=== PATIENT | male | born 1965 | race Caucasian/White ===

== ENCOUNTER 2017-11-30 19:59 | Inpatient (IN) | payer BC ==
[2017-11-30 20:05] VITALS: BMI 50.8
[2017-11-30 22:29] LABS: BASO # 0.01 K/mm3 (0.0-2.0); BASO % 0.1 % (0.0-3.0); EOS # 0.2 (0.0-0.7); EOS % 1.9 % (1.5-5.0); GRAN # 8.14 (1.4-6.5); GRAN % 72.7 % (50.0-68.0); HEMOGLOBIN 11.8 g/dL (14.0-18.0); LYMPH # 2.2 (1.2-3.4); LYMPH % 19.7 % (22.0-35.0); MEAN CELL VOLUME 88.5 fl (80.0-105.0); MEAN CORPUSCULAR HEMOGLOBIN 30.1 pg (25.0-35.0); MEAN PLATELET VOLUME 10.8 fl (7.0-11.0); MONO # 0.6 (0.1-0.6); MONO % 5.6 % (1.0-6.0); RBC 3.92 10^6/uL (3.5-6.1); RED CELL DISTRIBUTION WIDTH 13.6 % (11.5-14.5); WHITE BLOOD COUNT 11.2 10^3/ul (4.5-11.0)
[2017-11-30 22:33] LABS: URINE BILIRUBIN NEGATIVE (NEGATIVE); URINE BLOOD MODERATE (NEGATIVE); URINE GLUCOSE (UA) 100 mg/dL (NEGATIVE); URINE LEUKOCYTE ESTERASE NEGATIVE Leu/uL (NEGATIVE); URINE PROTEIN 100 mg/dL (<30 mg/dL); URINE UROBILINOGEN 0.2 E.U./dL (<1 E.U./dL)
[2017-11-30 22:41] LABS: ALB/GLOB RATIO 1.2 (1.1-1.8); ALBUMIN 3.4 g/dL (3.0-4.8); CALCIUM 8.3 mg/dL (8.4-10.5)
[2017-11-30 22:41] LABS: URINE APPEARANCE SL CLOUDY (CLEAR); URINE COLOR YELLOW (YELLOW)
[2017-11-30 22:45] LABS: URINE WBC 0 - 2 /hpf (0-6)
[2017-11-30 22:46] LABS: URINE BACTERIA FEW (NEG); URINE EPITHELIAL CELLS 0 - 2 /hpf (0-5)
--- NOTE | 2017-11-30 23:04 | ED PDOC ---
Arrival/HPI - General Chief Complaint: Abnormal Labs Time Seen by Provider: 11/30/17 20:21 Historian: Patient - History of Present Illness Narrative History of Present Illness (Text): 11/30/17 22:50 52yo male with PMHx of hypertension hypercoagulability who was referred to ED by Dr. Izquierdo for abnormal lab value. Patient states he had a lab tet on and when he saw Dr. Izquierdo today he was told his kidney function is low. He report right groin pain x days. Denies nausea, vomiting, hematuria, back pain, fever, chills, any other complaint. He is s/p nephrectomy . states his current one kidney is horse shoe. Past Medical History - Provider Review Nursing Documentation Reviewed: Yes - Tetanus Immunization Tetanus Immunization: Unknown - Cardiac Hx Pacemaker: No - Pulmonary Hx Asthma: Yes (seasonal) - Neurological Hx Paralysis: No - Renal Other/Comment: pt being worked up for kidney function. pt was born with one functioning kidney had several surgeries to open the closed kidney, pt can't remember which kidney was not working, surgeries were done asa child - Hematological/Oncological Hx Blood Transfusions: No - Musculoskeletal/Rheumatological Hx Musculoskeletal Disorders: No - Psychiatric Hx Emotional Abuse: No Hx Physical Abuse: No Hx Substance Use: No - Surgical History Hx Appendectomy: Yes - Anesthesia Hx Anesthesia Reactions: No Hx Malignant Hyperthermia: No - Suicidal Assessment Feels Threatened In Home Enviroment: No Family/Social History - Physician Review Nursing Documentation Reviewed: Yes Family/Social History: Unknown Family HX Smoking Status: Never Smoked Hx Alcohol Use: Yes (OCCASIONAL) Hx Substance Use: No Allergies/Home Meds Allergies/Adverse Reactions: Allergies No Known Allergies Allergy (Verified 11/30/17 20:05) Home Medications: Home Meds Medication Instructions Recorded Confirmed Fluticasone/Salmeterol [Advair 1 inh IH PRN PRN 10/17/14 11/30/17 Diskus 500/50] Warfarin [Coumadin] 3 mg PO DAILY 04/10/15 11/30/17 B-Complex with Vitamin C [Vitamin 1 each PO DAILY 11/30/17 11/30/17 B-Complex & C] Carvedilol [Coreg] 25 mg PO DAILY 11/30/17 11/30/17 Cholecalciferol (Vitamin D3) 5,000 unit PO QWK 11/30/17 11/30/17 [Vitamin D3] Modafinil [Provigil] 200 mg PO DAILY 11/30/17 11/30/17 Nebivolol [Bystolic] 10 mg PO DAILY 11/30/17 11/30/17 Sodium Bicarbonate 0 mg PO DAILY 11/30/17 11/30/17 Warfarin [Coumadin] 6 mg PO DAILY 11/30/17 11/30/17 Review of Systems - Physician Review All systems were reviewed & negative as marked: Yes - Review of Systems Constitutional: Normal Eyes: Normal ENT: Normal Respiratory: Normal Cardiovascular: Normal Gastrointestinal: Abdominal Pain. absent: Constipation, Diarrhea, Nausea, Vomiting, Hematochezia, Hematemesis Genitourinary Male: Normal Musculoskeletal: Normal Skin: Normal Neurological: Normal Endocrine: Normal Hemo/Lymphatic: Normal Psychiatric: Normal Physical Exam Vital Signs Reviewed: Yes Vital Signs Temp Pulse Resp BP Pulse Ox 11/30/17 23:33 98.3 F 62 154/99 H 99 11/30/17 20:12 98.3 F 69 19 169/95 H 98 11/30/17 20:11 98.3 F 69 19 169/95 H 98 Temperature: Afebrile Blood Pressure: Normal Pulse: Regular Respiratory Rate: Normal Appearance: Positive for: Well-Appearing, Non-Toxic, Comfortable, Other ( Morbidly obese ) Pain Distress: None Mental Status: Positive for: Alert and Oriented X 3 - Systems Exam Head: Present: Atraumatic, Normocephalic Pupils: Present: PERRL Extroacular Muscles: Present: EOMI Conjunctiva: Present: Normal Mouth: Present: Moist Mucous Membranes Neck: Present: Normal Range of Motion Respiratory/Chest: Present: Clear to Auscultation, Good Air Exchange. No: Respiratory Distress, Accessory Muscle Use Cardiovascular: Present: Regular Rate and Rhythm, Normal S1, S2. No: Murmurs Abdomen: Present: Normal Bowel Sounds, Other (Soft). No: Tenderness, Distention , Peritoneal Signs, Rebound, Guarding, McBurney's Point Tender, Rovsing's Sign Present Back: Present: Normal Inspection Upper Extremity: Present: Normal Inspection. No: Cyanosis, Edema Lower Extremity: Present: Normal Inspection. No: Edema Neurological: Present: GCS=15, CN II-XII Intact, Speech Normal Skin: Present: Warm, Dry, Normal Color. No: Rashes Psychiatric: Present: Alert, Oriented x 3, Normal Insight, Normal Concentration Medical Decision Making ED Course and Treatment: 12/01/17 01:46 Pt in ED for stated history. He was hemodynamically stable and in no distress in ED. Lab was noted with Cr of 8.8. Pt's Potassium was however 3.8. No indication of emergency dialysis at this time. abdominal/Pelvic CT was ordered to r/o kidney obstruction 12/01/17 01:48 IMPRESSION: - Severe right hydroureteronephrosis, with a transition point in the right distal ureter. No obstructing stones seen. Similar findings were described on a prior CT report, and could represent chronic obstruction, such as due to a stricture of the right distal ureter. Recommend clinical correlation. - Mild bladder wall thickening. This is a nonspecific finding, but can be seen with cystitis. Recommend clinical correlation. - Otherwise, no evidence of significant acute process. - See above for remaining findings. case was DW Dr. Izquierdo and pt was admitted to her service. Result and plan was DW the pt and he agreed. - Lab Interpretations Lab Results: 11/30/17 22:16 11/30/17 22:16 Lab Results 11/30/17 22:21: Urine Color Yellow, Urine Appearance Sl cloudy, Urine pH 6.0, Ur Specific [place] 1.015, Urine Protein 100 H, Urine Glucose (UA) 100 H, Urine Ketones Negative, Urine Blood Moderate H, Urine Nitrate Negative, Urine Bilirubin Negative, Urine Urobilinogen 0.2, Ur Leukocyte Esterase Negative, Urine RBC 2 - 5, Urine WBC 0 - 2, Ur Epithelial Cells 0 - 2, Urine Bacteria Few 11/30/17 22:16: Sodium 143, Potassium 3.8, Chloride 107, Carbon Dioxide 21, Anion Gap 18, BUN 126 H*, Creatinine 8.8 H*, Est GFR ( Amer) 8, Est GFR ( Non-Af Amer) 6, Random Glucose 109, Calcium 8.3 L, Total Bilirubin 0.2, AST 15 L , ALT 31, Alkaline Phosphatase 58, Total Protein 6.2, Albumin 3.4, Globulin 2.8 , Albumin/Globulin Ratio 1.2 11/30/17 22:16: PT 35.8 H, INR 3.00 H, APTT 39.8 H 11/30/17 22:16: WBC 11.2 H D, RBC 3.92, Hgb 11.8 L, Hct 34.7 L, MCV 88.5, MCH 30.1, MCHC 34.0, RDW 13.6, Plt Count 212, MPV 10.8, Gran % 72.7 H, Lymph % (Auto ) 19.7 L, [place] % (Auto) 5.6, Eos % (Auto) 1.9, Baso % (Auto) 0.1, Gran # 8.14 H , Lymph # (Auto) 2.2, [place] # (Auto) 0.6, Eos # (Auto) 0.2, Baso # (Auto) 0.01 - RAD Interpretation Radiology Orders: 11/30/17 22:47 ABD & PELVIS W/O PO OR IV CONT [CT] Stat Disposition/Present on Arrival - Present on Arrival Any Indicators Present on Arrival: No History of DVT/PE: No History of Uncontrolled Diabetes: No Urinary Catheter: No History of Decub. Ulcer: No History Surgical Site Infection Following: None - Disposition Have Diagnosis and Disposition been Completed?: Yes Diagnosis: Acute kidney injury (nontraumatic) Disposition: HOSPITALIZED Disposition Time: 12:00 Patient Plan: Admission Condition: STABLE
[2017-11-30 23:09] LABS: PARTIAL THROMBOPLASTIN TIME 39.8 Seconds (25.1-36.5); PROTHROMBIN TIME 35.8 SECONDS (9.4-12.5)
--- NOTE | 2017-12-01 00:05 | CT ---
EXAM: CT Abdomen and Pelvis Without Intravenous Contrast EXAM DATE/TIME: 11/30/2017 10:47 PM CLINICAL HISTORY: 52 years old, male; Pain; Abdominal pain; Localized; Right lower quadrant (rlq); Prior surgery; Surgery date: 6+ months; Surgery type: HX appendectomy, HX 2 kidney surgeries TECHNIQUE: Axial computed tomography images of the abdomen and pelvis without intravenous contrast. All CT scans at this facility use one or more dose reduction techniques, viz.: automated exposure control; ma/kV adjustment per patient size (including targeted exams where dose is matched to indication; i.e. head); or iterative reconstruction technique. Coronal and sagittal reformatted images were created and reviewed. COMPARISON: Report from a prior CT of 03/21/2015. The prior study itself is currently unavailable, however. FINDINGS: LIMITATIONS: Artifact related to the patient's body habitus. LOWER THORAX: Small amount of fluid in the pericardium. No evidence of a large circumferential pericardial effusion. ABDOMEN: LIVER: No acute abnormality of the liver identified. GALLBLADDER AND BILE DUCTS: No CT evidence of acute cholecystitis. No evidence of significant biliary ductal dilatation. PANCREAS: No CT evidence of acute pancreatitis. SPLEEN: No acute abnormality of the spleen identified. ADRENALS: No acute abnormality of the adrenal glands identified. KIDNEYS AND URETERS: Severe right hydroureteronephrosis. The hydroureter extends to the level of the distal right ureter, where there appears to be a transition point in the right distal ureter, a few centimeters above the right UVJ. No obstructing stones seen. Scarring and chronic cortical thinning of the right kidney. No renal or ureteral stones. STOMACH AND BOWEL: Scattered colonic diverticulosis, without evidence of diverticulitis. Otherwise, no significant abnormality of the bowel is identified. No acute abnormality of the stomach or duodenum identified. No evidence of small bowel obstruction. APPENDIX: Normal appendix is not seen, and there is a reported history of previous appendectomy. PELVIS: BLADDER: Mild thickening of the bladder wall. REPRODUCTIVE: No acute abnormality of the reproductive organs is seen. ABDOMEN and PELVIS: INTRAPERITONEAL SPACE: No evidence of free intraperitoneal air or fluid. BONES/JOINTS: Mild erosive changes and sclerosis abutting the sacroiliac joints bilaterally. Findings could be due to bilateral sacroiliitis. Recommend clinical correlation. SOFT TISSUES: No acute abnormality of the visualized soft tissues is seen. VASCULATURE: No evidence of abdominal aortic aneurysm. No evidence of periaortic hemorrhage. LYMPH NODES: No evidence of diffuse lymphadenopathy. IMPRESSION: - Severe right hydroureteronephrosis, with a transition point in the right distal ureter. No obstructing stones seen. Similar findings were described on a prior CT report, and could represent chronic obstruction, such as due to a stricture of the right distal ureter. Recommend clinical correlation. - Mild bladder wall thickening. This is a nonspecific finding, but can be seen with cystitis. Recommend clinical correlation. - Otherwise, no evidence of significant acute process. - See above for remaining findings.
--- NOTE | 2017-12-01 02:44 | CP.PCM.PN ---
Subjective - Date & Time of Evaluation Date of Evaluation: 12/01/17 Time of Evaluation: 02:43 - Subjective Subjective: Patient was seen at bedside because he requested Coreg. States that he takes Coreg 25 mg PO daily. He did not take his Coreg yesterday. His little lightheadedness. Has no other complaints. Denies dizziness, heaviness in head, chest pain , sob. BP-176/100. HR 69/min. This 52 year old male is admitted with Has PMH of HTN, morbid obesity, bronchial asthma. Objective - Vital Signs/Intake and Output Vital Signs (last 24 hours): Temp Pulse Resp BP Pulse Ox 98 F 69 20 176/100 H 100 12/01/17 02:31 12/01/17 02:31 12/01/17 02:31 12/01/17 02:31 12/01/17 01:43 - Labs Labs: PT 35.8 SECONDS (9.4-12.5) H 11/30/17 22:16 INR 3.00 (0.93-1.08) H 11/30/17 22:16 APTT 39.8 Seconds (25.1-36.5) H 11/30/17 22:16 Most Recent Lab Values WBC 11.2 10^3/ul (4.5-11.0) H D 11/30/17 22:16 RBC 3.92 10^6/uL (3.5-6.1) 11/30/17 22:16 Hgb 11.8 g/dL (14.0-18.0) L 11/30/17 22:16 Hct 34.7 % (42.0-52.0) L 11/30/17 22:16 MCV 88.5 fl (80.0-105.0) 11/30/17 22:16 MCH 30.1 pg (25.0-35.0) 11/30/17 22:16 MCHC 34.0 g/dl (31.0-37.0) 11/30/17 22:16 RDW 13.6 % (11.5-14.5) 11/30/17 22:16 Plt Count 212 10^3/uL (120.0-450.0) 11/30/17 22:16 MPV 10.8 fl (7.0-11.0) 11/30/17 22:16 Gran % 72.7 % (50.0-68.0) H 11/30/17 22:16 Lymph % (Auto) 19.7 % (22.0-35.0) L 11/30/17 22:16 [place] % (Auto) 5.6 % (1.0-6.0) 11/30/17 22:16 Eos % (Auto) 1.9 % (1.5-5.0) 11/30/17 22:16 Baso % (Auto) 0.1 % (0.0-3.0) 11/30/17 22:16 Gran # 8.14 (1.4-6.5) H 11/30/17 22:16 Lymph # (Auto) 2.2 (1.2-3.4) 11/30/17 22:16 [place] # (Auto) 0.6 (0.1-0.6) 11/30/17 22:16 Eos # (Auto) 0.2 (0.0-0.7) 11/30/17 22:16 Baso # (Auto) 0.01 K/mm3 (0.0-2.0) 11/30/17 22:16 PT 35.8 SECONDS (9.4-12.5) H 11/30/17 22:16 INR 3.00 (0.93-1.08) H 11/30/17 22:16 APTT 39.8 Seconds (25.1-36.5) H 11/30/17 22:16 Sodium 143 mmol/L (132-148) 11/30/17 22:16 Potassium 3.8 mmol/L (3.6-5.0) 11/30/17 22:16 Chloride 107 mmol/L (98-107) 11/30/17 22:16 Carbon Dioxide 21 mmol/L (21-33) 11/30/17 22:16 Anion Gap 18 (10-20) 11/30/17 22:16 BUN 126 mg/dL (7-21) H* 11/30/17 22:16 Creatinine 8.8 mg/dl (0.8-1.5) H* 11/30/17 22:16 Est GFR ( Amer) 8 11/30/17 22:16 Est GFR (Non-Af Amer) 6 11/30/17 22:16 Random Glucose 109 mg/dL (70-110) 11/30/17 22:16 Calcium 8.3 mg/dL (8.4-10.5) L 11/30/17 22:16 Total Bilirubin 0.2 mg/dL (0.2-1.3) 11/30/17 22:16 AST 15 U/L (17-59) L 11/30/17 22:16 ALT 31 U/L (7-56) 11/30/17 22:16 Alkaline Phosphatase 58 U/L (38-126) 11/30/17 22:16 Total Protein 6.2 g/dL (5.8-8.3) 11/30/17 22:16 Albumin 3.4 g/dL (3.0-4.8) 11/30/17 22:16 Globulin 2.8 gm/dL 11/30/17 22:16 Albumin/Globulin Ratio 1.2 (1.1-1.8) 11/30/17 22:16 Urine Color Yellow (YELLOW) 11/30/17 22:21 Urine Appearance Sl cloudy (CLEAR) 11/30/17 22:21 Urine pH 6.0 (4.7-8.0) 11/30/17 22:21 Ur Specific [place] 1.015 (1.005-1.035) 11/30/17 22:21 Urine Protein 100 mg/dL (<30 mg/dL) H 11/30/17 22:21 Urine Glucose (UA) 100 mg/dL (NEGATIVE) H 11/30/17 22:21 Urine Ketones Negative mg/dL (NEGATIVE) 11/30/17 22:21 Urine Blood Moderate (NEGATIVE) H 11/30/17 22:21 Urine Nitrate Negative (NEGATIVE) 11/30/17 22:21 Urine Bilirubin Negative (NEGATIVE) 11/30/17 22:21 Urine Urobilinogen 0.2 E.U./dL (<1 E.U./dL) 11/30/17 22:21 Ur Leukocyte Esterase Negative Hu/uL (NEGATIVE) 11/30/17 22:21 Urine RBC 2 - 5 /hpf (0-2) 11/30/17 22:21 Urine WBC 0 - 2 /hpf (0-6) 11/30/17 22:21 Ur Epithelial Cells 0 - 2 /hpf (0-5) 11/30/17 22:21 Urine Bacteria Few (NEG) 11/30/17 22:21 - Constitutional Appears: Well, No Acute Distress - Head Exam Head Exam: ATRAUMATIC, NORMAL INSPECTION, NORMOCEPHALIC Additional comments: Obese. - Eye Exam Eye Exam: Normal appearance - ENT Exam ENT Exam: Normal External Ear Exam - Neck Exam Neck Exam: Normal Inspection - Respiratory Exam Respiratory Exam: NORMAL BREATHING PATTERN - Cardiovascular Exam Cardiovascular Exam: absent: JVD - GI/Abdominal Exam GI & Abdominal Exam: absent: Distended - Rectal Exam Rectal Exam: Deferred - Exam Additional comments: Deferred. - Extremities Exam Extremities Exam: Normal Inspection - Back Exam Back Exam: NORMAL INSPECTION - Neurological Exam Neurological Exam: Alert, Oriented x3 - Psychiatric Exam Psychiatric exam: Normal Affect, Normal Mood - Skin Skin Exam: Normal Color Assessment and Plan - Assessment and Plan (Free Text) Assessment: Elevated blood pressure reading. HTN. Morbid obesity. Bronchial asthma. CKD. Plan: Coreg 25 mg PO x 1.
[2017-12-01] MEDS ORDERED: Fluticasone-Salmeterol 500-50mcg Diskus IH PRN (08:17)
[2017-12-01 11:35] LABS: BASO # 0.02 K/mm3 (0.0-2.0); BASO % 0.2 % (0.0-3.0); EOS # 0.2 (0.0-0.7); EOS % 2.3 % (1.5-5.0); GRAN # 6.92 (1.4-6.5); GRAN % 71.7 % (50.0-68.0); HEMOGLOBIN 11.6 g/dL (14.0-18.0); LYMPH # 1.5 (1.2-3.4); LYMPH % 15.9 % (22.0-35.0); MEAN CELL VOLUME 88.7 fl (80.0-105.0); MEAN CORPUSCULAR HEMOGLOBIN 29.8 pg (25.0-35.0); MEAN CORPUSCULAR HGB CONC 33.6 g/dl (31.0-37.0); MEAN PLATELET VOLUME 10.9 fl (7.0-11.0); MONO % 9.9 % (1.0-6.0); RBC 3.89 10^6/uL (3.5-6.1); RED CELL DISTRIBUTION WIDTH 13.6 % (11.5-14.5); WHITE BLOOD COUNT 9.7 10^3/ul (4.5-11.0)
[2017-12-01 11:42] LABS: INR 2.76 (0.93-1.08); PROTHROMBIN TIME 32.4 SECONDS (9.4-12.5)
[2017-12-01 11:50] LABS: BLOOD UREA NITROGEN 125 mg/dL (7-21); CALCIUM 8.2 mg/dL (8.4-10.5); GFR AFRICAN-AMERICAN 8; GFR NON-AFRICAN AMERICAN 7
[2017-12-01] MEDS ORDERED: Arformoterol 15 mcg/2 ml Inh Sol IH PRN (12:00)
[2017-12-01] MEDS ORDERED: Budesonide 0.5 mg/2 ml Inhal Susp UD IH PRN (12:01)
[2017-12-01 17:03] LABS: HEPATITIS B SURFACE AG Negative (NEGATIVE)
--- NOTE | 2017-12-01 17:09 | CP.PCM.CON ---
History of Present Illness - History of Present Illness History of Present Illness: Initial Nephrology Consultation: Assessment: Stable Hypertensive Chronic Kidney Disease (I12.0) with CKD stage 5 9N18.5) likely End stage renal disease (N18.6) Anemia (D64.9), Hyperphosphatemia (E83.39) Morbid obesity rt renal atrophy and obstructive hydronephrosis (chronic) with ureteral stricture bilateral extensive PE (2014)with heterozygous mutation for Prothrombin gene on lifelong coumadin Plan: [facility] [employer] initiation indicated. d/w patient about home/in-center HD, PD, he opted for in-center HD. also provided education about kidney transplantation. consult for IR for permacath placement. vascular surgery for AVF. save non- dominant arm from any IV line or phlebotomy will plan for dialysis once access in place. pt agreeable to start dialysis. consent obtained. added Nephrovite 1 tab/day. PRBC as needed for anemia. not on MEENA as BP elevated, last Hb 11.8. will check iron studies start phos binders , last phos level 8.4 check iPTH BP control with meds as ordered. Patient not on RAAS ramón as advanced CKD, will start once on HD Glycemic control, Dialysis consistent diet Further work up/management as per primary team Dose meds/antibiotics (if needed) for ESRD status. Avoid fleets enema/magnesium based laxatives. pt advised to loose weight Thanks for allowing me to participate in care of your patient. Will follow patient with you. Please call if any Qs. d/w team and . Dr Kelechi Solano Office: [phone] Chief Complaint;abnormal kidney function HPI: Pt is a 52 M with hx of CKD stage 4 with rt renal atrophy and obstructive hydronephrosis (chronic) with ureteral strictures, b/l PE with heterozygous mutation for Prothrombin gene on lifelong coumadin, chronic anemia, long standing hx of hypertension, morbid obesity, non compliant with follow ups presented with complaints of muscle cramps. found to have advanced kidney failure hence renal was consulted cramps better. he feels in usual health. aware about kidney disease for years ROS: Cardiovascular: No chest pain. Pulmonary: No shortness of breath Gastrointestinal: denies abdominal pain No nausea. No vomiting. Genitourinary: No pain while urinating. Denies blood in urine. All other negative Physical Examination: General Appearance: Comfortable, in no acute respiratory distress, co-operative . morbid obesity Vitals reviewed and noted as below Head; Atraumatic, normocephalic ENT: no ulcers no thrush. Tongue is midline. Oropharynx: no rash or ulcers. EYES: Pupils are equal, round and reactive to light accommodation. Eye muscles and extraocular movement intact. Sclera is anicteric. Neck; supple no lymphadenopathy, no thyromegaly or bruit Lungs: Normal respiratory rate/effort. Breath sounds bilateral equal and clear Heart: Normal rate. s1s2 normal. No rub or gallop. Extremities: 1-2+ edema. No varicose veins Neurological: Patient is alert, awake and oriented to person, place and time. No focal deficit. Strength bilateral appropriate and equal Skin: Warm and dry. Normal turgor. No rash. Palpitation: Normal elasticity for age Abdomen: Abdomen is soft. Bowel sounds +. There is no abdominal tenderness, no guarding/rigidity or organomegaly Psych: normal insight and normal affect/mood MSK: no joint tenderness or swelling. Digits and nails normal, no deformity : kidney or bladder not palpable Access: none Labs/imaging reviewed. Past medical history, past surgical history, family history, social history, allergy reviewed and noted as below Family Hx: no hx of CKD. uncle was on dialysis. pt not aware about cause of kidney failure Past Patient History - Tetanus Immunizations Tetanus Immunization: Unknown - Past Social History Smoking Status: Never Smoked - CARDIAC Hx Pacemaker: No - PULMONARY Hx Asthma: Yes (seasonal) - NEUROLOGICAL Hx Neurological Disorder: No - HEENT Hx HEENT Problems: No - RENAL Other/Comment: pt being worked up for kidney function. pt was born with one functioning kidney had several surgeries to open the closed kidney, pt can't remember which kidney was not working, surgeries were done asa child - ENDOCRINE/METABOLIC Hx Endocrine Disorders: No - HEMATOLOGICAL/ONCOLOGICAL Hx Blood Disorders: No - INTEGUMENTARY Hx Dermatological Problems: No - MUSCULOSKELETAL/RHEUMATOLOGICAL Hx Musculoskeletal Disorders: No Hx Falls: No - GASTROINTESTINAL Hx Gastrointestinal Disorders: No - GENITOURINARY/GYNECOLOGICAL Hx Genitourinary Disorders: No - PSYCHIATRIC Hx Emotional Abuse: No Hx Physical Abuse: No - SURGICAL HISTORY Hx Appendectomy: Yes - ANESTHESIA Hx Anesthesia Reactions: No Hx Malignant Hyperthermia: No Meds Allergies/Adverse Reactions: Allergies Allergy/AdvReac Type Severity Reaction Status Date / Time No Known Allergies Allergy Verified 12/01/17 02:31 - Medications Medications: Current Medications Amlodipine Besylate (Norvasc) 5 mg PO DAILY [facility] Last Admin: 12/01/17 11:40 Dose: 5 mg Arformoterol Tartrate (Brovana) 15 mcg IH DAILY PRN PRN Reason: Shortness of Breath Budesonide (Pulmicort Respules) 1 mg IH DAILY PRN PRN Reason: Shortness of Breath Carvedilol (Coreg) 25 mg PO DAILY [facility] Last Admin: 12/01/17 11:41 Dose: Not Given Hydralazine HCl (Apresoline) 50 mg PO BID [facility] Last Admin: 12/01/17 09:13 Dose: 50 mg Hydralazine HCl (Apresoline) 25 mg PO Q4 PRN PRN Reason: Other Last Admin: 12/01/17 16:07 Dose: 25 mg Sevelamer HCl (Renagel) 800 mg PO TID [facility] Vitamin B Complex/Vit C/Folic Acid (Nephro-Yamel) 1 tab PO 0800 [facility] Results - Vital Signs Recent Vital Signs: Last Vital Signs Temp 97.8 F 12/01/17 07:30 Pulse 62 12/01/17 11:40 Resp 20 12/01/17 07:30 BP 179/105 H 12/01/17 16:07 Pulse Ox 99 12/01/17 07:30 - Labs Result Diagrams: 12/01/17 11:20 12/01/17 11:20 Labs: Laboratory Results - last 24 hr 12/01/17 12/01/17 12/01/17 11:20 11:20 11:20 WBC 9.7 RBC 3.89 Hgb 11.6 L Hct 34.5 L MCV 88.7 MCH 29.8 MCHC 33.6 RDW 13.6 Plt Count 189 MPV 10.9 Gran % 71.7 H Lymph % (Auto) 15.9 L [place] % (Auto) 9.9 H Eos % (Auto) 2.3 Baso % (Auto) 0.2 Gran # 6.92 H Lymph # (Auto) 1.5 [place] # (Auto) 1.0 H Eos # (Auto) 0.2 Baso # (Auto) 0.02 PT 32.4 H INR 2.76 H Sodium 140 Potassium 3.9 Chloride 106 Carbon Dioxide 20 L Anion Gap 18 BUN 125 H* Creatinine 8.5 H* Est GFR ( Amer) 8 Est GFR (Non-Af Amer) 7 Random Glucose 96 Calcium 8.2 L Phosphorus 8.6 H Magnesium 2.0 Iron TIBC % Saturation Ur Random Creatinine U Random Total Protein 12/01/17 12/01/17 12/01/17 11:20 12:00 12:04 WBC RBC Hgb Hct MCV MCH MCHC RDW Plt Count MPV Gran % Lymph % (Auto) [place] % (Auto) Eos % (Auto) Baso % (Auto) Gran # Lymph # (Auto) [place] # (Auto) Eos # (Auto) Baso # (Auto) PT INR Sodium Potassium Chloride Carbon Dioxide Anion Gap BUN Creatinine Est GFR ( Amer) Est GFR (Non-Af Amer) Random Glucose Calcium Phosphorus Magnesium Iron 70 TIBC 310 % Saturation 22 Ur Random Creatinine 39 U Random Total Protein 188
[2017-12-01 17:20] LABS: HEPATITIS C ANTIBODY NEGATIVE (NEGATIVE)
[2017-12-02 07:17] LABS: INR 2.16 (0.93-1.08); PROTHROMBIN TIME 25.2 SECONDS (9.4-12.5)
--- NOTE | 2017-12-02 08:41 | HP ---
HISTORY OF PRESENT ILLNESS: Patient is a 52-year-old morbidly obese male known to me from office practice, very noncompliant with his medication. He was last seen in my office in June and he showed up 3 days ago for a regular checkup and he has been out of medication for more than 2 weeks. I did the blood work that showed creatinine of 10 as compared to creatinine of 3 that was 5 months ago, although patient has no symptoms of nausea or vomiting. No history of diarrhea. No shortness of breath. I advised to him go to emergency room, but when I called the patient, he said he is at work, he cannot leave work and whenever he will get time, he will come to emergency room. Yesterday, I saw patient with his and I advised him to go to ER, so he ended up coming to ER yesterday. He denies any shortness of breath. Does complain of and history of weight loss. No nausea, vomiting. PAST MEDICAL HISTORY: Significant for: 1. Morbid obesity. 2. Hypertension. 3. History of horseshoe kidney. 4. Status post chronic right hydronephrosis. 5. History of pulmonary embolism. 6. Chronic anemia. 7. COPD. 8. Right renal atrophy. 9. Obstructive hydronephrosis with ureteral stricture. ALLERGIES: HE IS NOT ALLERGIC TO ANY MEDICATIONS. MEDICATIONS AT HOME: He is supposed to be on Coumadin 6 mg daily. He is on sodium bicarb one tablet 3 times a day, Bystolic 10 mg daily, Provigil 200 mg daily, Advair 250/50 one puff twice a day, carvedilol 25 daily. SOCIAL HISTORY: He is . Denies smoking, drinking, or alcohol use. REVIEW OF SYSTEMS: Significant for right flank pressure, otherwise no significant complaint. PHYSICAL EXAMINATION: GENERAL: He is awake, alert, oriented, communicative. VITAL SIGNS: Afebrile. Pulse 64, respiration 20, blood pressure 163/87. LUNGS: Bilateral good airflow. No rhonchi or crackle. HEART: S1 and S2 audible. ABDOMEN: Soft. Obese. Nontender. No rebound. No guarding. NEUROLOGIC: Patient is awake, alert, oriented, able to communicate, ambulatory. EXTREMITIES: Bilateral legs, +2 edema. LABORATORY EXAMINATION: WBC on admission was 11.2, today it is 9.7; hemoglobin 11.6; hematocrit 34.5; platelets 189. Chemistry: Sodium 140, potassium 3.9, chloride 106, CO2 20, BUN , creatinine 8.5, blood sugar of 96. Vitamin D 17.9. His urine microalbumin more than 950. Hepatitis profile is negative. ASSESSMENT: 1. Stage IV kidney disease. 2. History of pulmonary embolism. 3. Uncontrolled hypertension. 4. Morbid obesity. 5. 2.76. PLAN: Dr. Akira Romero has been consulted, possible U[place] catheter placement tomorrow to initiate first dialysis. Patient was given all the options of hemodialysis, peritoneal dialysis. I saw the patient along with form setter [employer]. He was given all the options and he opted for hemodialysis and he is also talking about kidney transplant that will be arranged after initiating him on dialysis and there was also discussion about fistula placement. Patient agrees consult Dr. Gonzalez. Gennaro Izquierdo MD
[2017-12-02] MEDS ORDERED: Potassium Chloride 20 mEq ER Tab PO ONE (09:23)
[2017-12-02] MEDS ORDERED: Ergocalciferol 50,000 Intl Units Cap PO SCH (09:30)
[2017-12-02] MEDS: Multivitamin Vitamin B Complex (Nephro-Vite) Tab PO SCH (09:55)
--- NOTE | 2017-12-02 12:49 | CP.PCM.CON ---
History of Present Illness - History of Present Illness History of Present Illness: Surgery: Dr. Malin Reason for consult: AVF placement CC: worsening kidney function HPI: Patient is a 52 y/o male who presents from primary physician complaining of worsening kidney function. Patient has had chronic kidney issues since childhood. He denies chest pain, SOB, n/v/f/c. He follows a [facility] regularly. Patient is amendable to dialysis and is deciding between peritoneal vs HD. Patient states at this time, he is agreeable to catheter placement for short term HD. PMH: ESRD, PE on coumadin, hypercoaguable state, HTN PSH: multiple procedures for kidney issues as a child, open appendectomy Social: denies ETOH, tobacco, or drug use Family history: uncles x2 with ESRD Review of Systems - Constitutional Constitutional: absent: Anorexia, Chills, Weight Loss - EENT Eyes: absent: Blind Spots, Blurred Vision Nose/Mouth/Throat: absent: Epistaxis, Nasal Trauma - Cardiovascular Cardiovascular: absent: Chest Pain, Dyspnea - Respiratory Respiratory: absent: Cough, Wheezing - Gastrointestinal Gastrointestinal: absent: Abdominal Pain, Bloating, Vomiting - Genitourinary Genitourinary: absent: Hematuria, Pyuria - Musculoskeletal Musculoskeletal: absent: Atrophy, Back Pain - Neurological Neurological: absent: Abnormal Gait, Abnormal Hearing - Psychiatric Psychiatric: absent: Confusion, Depression - Endocrine Endocrine: absent: Polydipsia, Polyphagia - Hematologic/Lymphatic Hematologic: absent: Easy Bleeding, Easy Bruising Past Patient History - Tetanus Immunizations Tetanus Immunization: Unknown - Past Social History Smoking Status: Never Smoked - CARDIAC Hx Pacemaker: No - PULMONARY Hx Asthma: Yes (seasonal) - NEUROLOGICAL Hx Neurological Disorder: No - HEENT Hx HEENT Problems: No - RENAL Other/Comment: pt being worked up for kidney function. pt was born with one functioning kidney had several surgeries to open the closed kidney, pt can't remember which kidney was not working, surgeries were done asa child - ENDOCRINE/METABOLIC Hx Endocrine Disorders: No - HEMATOLOGICAL/ONCOLOGICAL Hx Blood Disorders: No - INTEGUMENTARY Hx Dermatological Problems: No - MUSCULOSKELETAL/RHEUMATOLOGICAL Hx Musculoskeletal Disorders: No Hx Falls: No - GASTROINTESTINAL Hx Gastrointestinal Disorders: No - GENITOURINARY/GYNECOLOGICAL Hx Genitourinary Disorders: No - PSYCHIATRIC Hx Emotional Abuse: No Hx Physical Abuse: No - SURGICAL HISTORY Hx Appendectomy: Yes - ANESTHESIA Hx Anesthesia Reactions: No Hx Malignant Hyperthermia: No Meds Allergies/Adverse Reactions: Allergies Allergy/AdvReac Type Severity Reaction Status Date / Time No Known Allergies Allergy Verified 12/01/17 02:31 - Medications Medications: Current Medications Arformoterol Tartrate (Brovana) 15 mcg IH DAILY PRN PRN Reason: Shortness of Breath Budesonide (Pulmicort Respules) 1 mg IH DAILY PRN PRN Reason: Shortness of Breath Carvedilol (Coreg) 25 mg PO DAILY [facility] Last Admin: 12/02/17 09:55 Dose: 25 mg Ergocalciferol (Drisdol 50,000 Intl Units Cap) 1 cap PO Q7D [facility] Furosemide (Lasix) 80 mg IVP DAILY [facility] Last Admin: 12/02/17 09:56 Dose: 80 mg Hydralazine HCl (Apresoline) 50 mg PO BID [facility] Last Admin: 12/02/17 09:55 Dose: 50 mg Hydralazine HCl (Apresoline) 25 mg PO Q4 PRN PRN Reason: Other Last Admin: 12/01/17 16:07 Dose: 25 mg Sevelamer HCl (Renagel) 800 mg PO TID [facility] Last Admin: 12/02/17 09:55 Dose: 800 mg Vitamin B Complex/Vit C/Folic Acid (Nephro-Yamel) 1 tab PO 0800 [facility] Last Admin: 12/02/17 09:55 Dose: 1 tab Physical Exam - Constitutional Appears: Non-toxic, No Acute Distress - Head Exam Head Exam: ATRAUMATIC, NORMOCEPHALIC - Eye Exam Eye Exam: EOMI, Normal appearance - ENT Exam ENT Exam: Mucous Membranes Moist - Respiratory Exam Respiratory Exam: NORMAL BREATHING PATTERN. absent: Respiratory Distress - Cardiovascular Exam Cardiovascular Exam: REGULAR RHYTHM. absent: Tachycardia - GI/Abdominal Exam GI & Abdominal Exam: absent: Distended, Tenderness - Extremities Exam Extremities exam: Positive for: normal inspection. Negative for: calf tenderness Results - Vital Signs Recent Vital Signs: Last Vital Signs Temp 98.0 F 12/02/17 07:30 Pulse 98 H 12/02/17 09:55 Resp 18 12/02/17 07:30 BP 142/77 12/02/17 09:56 Pulse Ox 95 12/02/17 07:30 - Labs Result Diagrams: 12/01/17 11:20 12/02/17 06:35 Labs: Laboratory Results - last 24 hr 12/01/17 12/01/17 12/01/17 11:20 11:20 11:20 PT INR Sodium Potassium Chloride Carbon Dioxide Anion Gap BUN Creatinine Est GFR ( Amer) Est GFR (Non-Af Amer) Random Glucose Calcium Phosphorus Ferritin 182.0 25-OH Vitamin D Total 17.9 L Urine Microalbumin Hep Bs Antigen Negative Hep Bs Antibody Negative Hepatitis C Antibody Negative 12/01/17 12/02/17 12/02/17 12:04 06:35 06:35 PT 25.2 H INR 2.16 H Sodium 142 Potassium 3.5 L Chloride 108 H Carbon Dioxide 18 L Anion Gap 20 BUN 123 H* Creatinine 9.0 H* Est GFR ( Amer) 8 Est GFR (Non-Af Amer) 6 Random Glucose 102 Calcium 9.0 Phosphorus 8.2 H Ferritin 25-OH Vitamin D Total Urine Microalbumin > 950.0 H Hep Bs Antigen Hep Bs Antibody Hepatitis C Antibody Assessment & Plan - Assessment and Plan (Free Text) Assessment: 52 y/o male w/ ESRD initiating HD Plan: -vein mapping bilaterally -will plan for AVF creation on Thursday -no sticks, IVs, blood draws, BP measurement to bilateral arms above elbow -ok for IVs in hands of either arm -further recs per nephro -may need hematology regarding anticoagulation perioperatively -d/w Dr. Dea Dao PGY3
[2017-12-02] MEDS ORDERED: Lidocaine 2% Inj (20ml) ONE (13:21)
[2017-12-02] MEDS ORDERED: Midazolam 2 MG/2 ML VIAL ONE ×2 (13:22→14:08)
[2017-12-02] MEDS ORDERED: Doxercalciferol 4 mcg/2 ml Inj IV SCH (15:00)
--- NOTE | 2017-12-02 15:07 | VASCULAR ---
PROCEDURE: Ultrasound and fluoroscopic tunneled right IJ dialysis catheter. CLINICAL HISTORY: ESRD PHYSICIAN(S): Akira Romero M.D. TECHNIQUE: The relative risks and indications for the procedure were explained to the patient and informed written consent obtained. The patient was placed supine on the arteriography table and the right neck/chest was prepped and draped in the usual sterile fashion. 1% Xylocaine was used to anesthetize the skin and soft tissues at the puncture site. Conscious sedation and monitoring were provided throughout the procedure by a nurse. Under direct ultrasound guidance, the rightinternal jugular vein was punctured with a micropuncture set. A 0.035 Glidewire was advanced into the IVC. Sequential dilatation was performed with subsequent placement of a 28cm West II catheter with its tip in the right atrium. A retrograde tunnel below the right clavicle was performed. The catheter was trimmed and the hub attached. Both ports aspirate and inject easily. The catheter was secured and a dressing applied. The patient tolerated the procedure well. IMPRESSION: 1. Ultrasound and fluoroscopically placed right IJ tunneled dialysis catheter.
--- NOTE | 2017-12-02 16:25 | CP.PCM.PN ---
Subjective - Date & Time of Evaluation Date of Evaluation: 12/02/17 Time of Evaluation: 16:22 - Subjective Subjective: Nephrology Consultation: Assessment: Stable Hypertensive Chronic Kidney Disease (I12.0) with CKD stage 5 (N18.5) likely End stage renal disease (N18.6) Anemia (D64.9), Hyperphosphatemia (E83.39) Morbid obesity rt renal atrophy and obstructive hydronephrosis (chronic) with ureteral stricture bilateral extensive PE (2014)with heterozygous mutation for Prothrombin gene on lifelong coumadin Plan: appreciated IR for permacath placement. appreciate vascular surgery for AVF. save non- dominant arm from any IV line or phlebotomy. pt planned for AVF thursday HD today 1st ssion and next HD tomorrow. added Nephrovite 1 tab/day. PRBC as needed for anemia. not on MEENA as BP elevated, last Hb 11.8. will give iron IV with HD started phos binders , last phos level 8.4 started hectorol as high PTH BP control with meds as ordered. Patient not on RAAS ramón hence will start anticoagulation as per primary team/heme Glycemic control, Dialysis consistent diet Further work up/management as per primary team Dose meds/antibiotics (if needed) for ESRD status. Avoid fleets enema/magnesium based laxatives. pt advised to loose weight SW for outpt HD placement. Thanks for allowing me to participate in care of your patient. Will follow patient with you. Please call if any Qs. d/w team and . Dr Kelechi Solano Office: [phone] Chief Complaint;abnormal kidney function HPI: Pt is a 52 M with hx of CKD stage 4 with rt renal atrophy and obstructive hydronephrosis (chronic) with ureteral strictures, b/l PE with heterozygous mutation for Prothrombin gene on lifelong coumadin, chronic anemia, long standing hx of hypertension, morbid obesity, non compliant with follow ups presented with complaints of muscle cramps. found to have advanced kidney failure hence renal was consulted cramps better. he feels in usual health. aware about kidney disease for years ROS: Cardiovascular: No chest pain. Pulmonary: No shortness of breath Gastrointestinal: denies abdominal pain No nausea. No vomiting. Genitourinary: No pain while urinating. Denies blood in urine. All other negative Physical Examination: seen on HD General Appearance: Comfortable, in no acute respiratory distress, co-operative . morbid obesity Vitals reviewed and noted as below Head; Atraumatic, normocephalic ENT: no ulcers no thrush. Tongue is midline. Oropharynx: no rash or ulcers. EYES: Pupils are equal, round and reactive to light accommodation. Eye muscles and extraocular movement intact. Sclera is anicteric. Neck; supple no lymphadenopathy, no thyromegaly or bruit Lungs: Normal respiratory rate/effort. Breath sounds bilateral equal and clear Heart: Normal rate. s1s2 normal. No rub or gallop. Extremities: 1-2+ edema. No varicose veins Neurological: Patient is alert, awake and oriented to person, place and time. No focal deficit. Strength bilateral appropriate and equal Skin: Warm and dry. Normal turgor. No rash. Palpitation: Normal elasticity for age Abdomen: Abdomen is soft. Bowel sounds +. There is no abdominal tenderness, no guarding/rigidity or organomegaly Psych: normal insight and normal affect/mood MSK: no joint tenderness or swelling. Digits and nails normal, no deformity : kidney or bladder not palpable Access: none Labs/imaging reviewed. Past medical history, past surgical history, family history, social history, allergy reviewed and noted as below Family Hx: no hx of CKD. uncle was on dialysis. pt not aware about cause of kidney failure Objective - Vital Signs/Intake and Output Vital Signs (last 24 hours): Temp Pulse Resp BP Pulse Ox 98 F 75 14 170/99 H 97 12/02/17 15:13 12/02/17 15:13 12/02/17 15:13 12/02/17 15:13 12/02/17 15:13 Intake and Output: 12/02/17 12/02/17 06:59 18:59 Intake Total 960 Output Total 1000 Balance -40 - Medications Medications: Current Medications Arformoterol Tartrate (Brovana) 15 mcg IH DAILY PRN PRN Reason: Shortness of Breath Budesonide (Pulmicort Respules) 1 mg IH DAILY PRN PRN Reason: Shortness of Breath Carvedilol (Coreg) 25 mg PO DAILY [facility] Last Admin: 12/02/17 09:55 Dose: 25 mg Doxercalciferol (Hectorol) 2 mcg IV TTS [facility] Furosemide (Lasix) 40 mg PO DAILY [facility] Hydralazine HCl (Apresoline) 50 mg PO BID [facility] Last Admin: 12/02/17 09:55 Dose: 50 mg Hydralazine HCl (Apresoline) 25 mg PO Q4 PRN PRN Reason: Other Last Admin: 12/01/17 16:07 Dose: 25 mg Iron Sucrose 100 mg/ Sodium (Chloride) 105 mls @ 210 mls/hr IVPB [facility]TS [facility] Stop: 12/24/17 10:29 Ondansetron HCl (Zofran Inj) 4 mg IVP Q6H PRN PRN Reason: Nausea/Vomiting Sevelamer HCl (Renagel) 800 mg PO TID [facility] Last Admin: 12/02/17 09:55 Dose: 800 mg Vitamin B Complex/Vit C/Folic Acid (Nephro-Yamel) 1 tab PO 0800 [facility] Last Admin: 12/02/17 09:55 Dose: 1 tab - Labs Labs: 12/01/17 11:20 12/02/17 06:35 PT 25.2 SECONDS (9.4-12.5) H 12/02/17 06:35 INR 2.16 (0.93-1.08) H 12/02/17 06:35 APTT 39.8 Seconds (25.1-36.5) H 11/30/17 22:16
--- NOTE | 2017-12-02 19:14 | CARD ---
APPROVED REPORT EKG Measurement Heart [id number] NJ 180P41 [id number] <Conclusion> Sinus rhythm with premature supraventricular complexes Otherwise normal ECG
--- NOTE | 2017-12-02 22:09 | CP.PCM.PN ---
Subjective - Date & Time of Evaluation Date of Evaluation: 12/02/17 Time of Evaluation: 22:09 - Subjective Subjective: Patient was seen at bedside. He complained of head ache. Mild , generalized headache. No dizziness, nausea, paraesthesia, localized weakness. Medical record was reviewed. BP 150/85, Pulse 95/min. This 52 year old male is admitted with abnormal lab value-Elevated BUN and creatinine/renal insufficiency. PMH of HTN, morbid obesity, bronchial asthma. Objective - Vital Signs/Intake and Output Vital Signs (last 24 hours): Temp Pulse Resp BP Pulse Ox 98 F 80 14 143/93 H 97 12/02/17 15:13 12/02/17 18:37 12/02/17 15:13 12/02/17 18:37 12/02/17 15:13 Intake and Output: 12/02/17 12/03/17 18:59 06:59 Intake Total 660 Output Total 300 Balance 360 - Medications Medications: Current Medications Arformoterol Tartrate (Brovana) 15 mcg IH DAILY PRN PRN Reason: Shortness of Breath Budesonide (Pulmicort Respules) 1 mg IH DAILY PRN PRN Reason: Shortness of Breath Carvedilol (Coreg) 25 mg PO DAILY [facility] AT [facility] Last Admin: 12/02/17 09:55 Dose: 25 mg Doxercalciferol (Hectorol) 2 mcg IV TTS [facility]CLUDE 234 BEDS AT THE [facility] Furosemide (Lasix) 40 mg PO DAILY [facility] 234 BEDS AT THE [facility] Hydralazine HCl (Apresoline) 50 mg PO BID [facility] 234 [facility]S AT [facility] Last Admin: 12/02/17 18:37 Dose: 50 mg Hydralazine HCl (Apresoline) 25 mg PO Q4 PRN PRN Reason: Other Last Admin: 12/01/17 16:07 Dose: 25 mg Iron Sucrose 100 mg/ Sodium (Chloride) 105 mls @ 210 mls/hr IVPB TTS [facility]S INCLUDE 234 BEDS AT THE [facility] Stop: 12/24/17 10:29 Losartan Potassium (Cozaar) 50 mg PO QPM [facility] 234 BEDS AT THE [facility] Ondansetron HCl (Zofran Inj) 4 mg IVP Q6H PRN PRN Reason: Nausea/Vomiting Sevelamer HCl (Renagel) 800 mg PO TID [facility] 234 [facility]S AT [facility] Last Admin: 12/02/17 18:37 Dose: 800 mg Vitamin B Complex/Vit C/Folic Acid (Nephro-Yamel) 1 tab PO 0800 [facility] 234 [facility]S [facility] Last Admin: 12/02/17 09:55 Dose: 1 tab - Labs Labs: 12/01/17 11:20 12/02/17 06:35 PT 25.2 SECONDS (9.4-12.5) H 12/02/17 06:35 INR 2.16 (0.93-1.08) H 12/02/17 06:35 APTT 39.8 Seconds (25.1-36.5) H 11/30/17 22:16 - Constitutional Appears: Well, No Acute Distress - Head Exam Head Exam: ATRAUMATIC, NORMAL INSPECTION, NORMOCEPHALIC - Eye Exam Eye Exam: Normal appearance - ENT Exam ENT Exam: Normal External Ear Exam - Neck Exam Neck Exam: Normal Inspection - Respiratory Exam Respiratory Exam: NORMAL BREATHING PATTERN - Cardiovascular Exam Cardiovascular Exam: absent: JVD - GI/Abdominal Exam GI & Abdominal Exam: absent: Distended - Rectal Exam Rectal Exam: Deferred - Exam Additional comments: deferred. - Extremities Exam Extremities Exam: Normal Inspection - Back Exam Back Exam: NORMAL INSPECTION - Neurological Exam Neurological Exam: Alert, Awake, Oriented x3 - Psychiatric Exam Psychiatric exam: Normal Affect, Normal Mood - Skin Skin Exam: Normal Color Assessment and Plan - Assessment and Plan (Free Text) Assessment: Head ache. HTN. Morbid obesity. Bronchial ashtma. Plan: Tylenol 650 mg PO x 1. Continue present management.
--- NOTE | 2017-12-03 00:11 | PN ---
DATE: SUBJECTIVE: The patient is a 52-year-old, seen and examined, lying in bed, seems to be comfortable. No nausea, vomiting, or diarrhea. PHYSICAL EXAMINATION: VITAL SIGNS: The patient is afebrile. Pulse 75, respirations 14, blood pressure 170/99. LUNGS: Bilateral good air flow. No rhonchi or crackle. HEART: S1, S2 audible. ABDOMEN: Soft, obese, nontender. No rebound. No guarding. NEUROLOGIC: The patient is awake, alert, oriented, able to communicate. LABORATORY EXAMINATION: PT is 25.2, INR 2.16. Chemistry: Sodium 142, potassium 3.5, chloride 108, CO2 of 18, BUN 123, creatinine 9.0, blood sugar of 102. 1317. Vitamin D 17.9. ASSESSMENT AND PLAN: 1. Acute and chronic renal failure. 2. Morbid obesity. 3. Hypertension, uncontrolled. 4. Status post Perma-Cath placement and patient received his first dialysis. 5. Chronic anemia. 6. Hyperphosphatemia. 7. Right renal atrophy secondary to ureteral stricture. 8. History of pulmonary embolism. PLAN: The patient received dialysis today. He is still therapeutic. We will start him on heparin tomorrow morning. We will repeat his PT/INR tomorrow. Continue on carvedilol. He is on losartan. He has been started on vitamin D. He has been given iron supplementation. Plan is to have shunt placed on Thursday. Gennaro Izquierdo MD
[2017-12-03 06:57] LABS: BASO # 0.02 K/mm3 (0.0-2.0); BASO % 0.2 % (0.0-3.0); EOS # 0.2 (0.0-0.7); EOS % 2.4 % (1.5-5.0); GRAN # 6.82 (1.4-6.5); GRAN % 73.1 % (50.0-68.0); HEMOGLOBIN 12.5 g/dL (14.0-18.0); LYMPH # 1.6 (1.2-3.4); LYMPH % 16.7 % (22.0-35.0); MEAN CELL VOLUME 88.1 fl (80.0-105.0); MEAN CORPUSCULAR HEMOGLOBIN 30.3 pg (25.0-35.0); MEAN CORPUSCULAR HGB CONC 34.3 g/dl (31.0-37.0); MEAN PLATELET VOLUME 11.2 fl (7.0-11.0); MONO # 0.7 (0.1-0.6); MONO % 7.6 % (1.0-6.0); RBC 4.13 10^6/uL (3.5-6.1); RED CELL DISTRIBUTION WIDTH 13.9 % (11.5-14.5); WHITE BLOOD COUNT 9.3 10^3/ul (4.5-11.0)
[2017-12-03 07:14] LABS: CALCIUM 9.1 mg/dL (8.4-10.5)
[2017-12-03 07:42] LABS: INR 1.92 (0.93-1.08); PARTIAL THROMBOPLASTIN TIME 35.6 Seconds (25.1-36.5); PROTHROMBIN TIME 22.4 SECONDS (9.4-12.5)
--- NOTE | 2017-12-03 08:13 | CP.PCM.PN ---
Subjective - Date & Time of Evaluation Date of Evaluation: 12/03/17 Time of Evaluation: 08:07 - Subjective Subjective: Surgery Progress Note: Patient seen and examined at bedside. Pt hypertensive, anxious overnight. Denies headache, f/c, n/v, leg swelling. Objective - Vital Signs/Intake and Output Vital Signs (last 24 hours): Temp Pulse Resp BP Pulse Ox 98 F 80 14 143/93 H 97 12/02/17 15:13 12/02/17 18:37 12/02/17 15:13 12/02/17 18:37 12/02/17 15:13 Intake and Output: 12/03/17 12/03/17 06:59 18:59 Intake Total 660 Output Total 800 Balance -140 - Medications Medications: Current Medications Arformoterol Tartrate (Brovana) 15 mcg IH DAILY PRN PRN Reason: Shortness of Breath Budesonide (Pulmicort Respules) 1 mg IH DAILY PRN PRN Reason: Shortness of Breath Carvedilol (Coreg) 25 mg PO DAILY [facility] Last Admin: 12/02/17 09:55 Dose: 25 mg Doxercalciferol (Hectorol) 2 mcg IVP [facility] Furosemide (Lasix) 40 mg PO DAILY [facility] Heparin Sodium (Porcine) (Heparin) 2,200 units ICA [facility] Heparin Sodium (Porcine) (Heparin) 2,400 units ICV [facility] Hydralazine HCl (Apresoline) 50 mg PO BID [facility] Last Admin: 12/02/17 18:37 Dose: 50 mg Hydralazine HCl (Apresoline) 25 mg PO Q4 PRN PRN Reason: Other Last Admin: 12/01/17 16:07 Dose: 25 mg Iron Sucrose (Venofer) [facility] Losartan Potassium (Cozaar) 50 mg PO QPM [facility] Ondansetron HCl (Zofran Inj) 4 mg IVP Q6H PRN PRN Reason: Nausea/Vomiting Sevelamer HCl (Renagel) 800 mg PO TID [facility] Last Admin: 12/02/17 18:37 Dose: 800 mg Vitamin B Complex/Vit C/Folic Acid (Nephro-Yamel) 1 tab PO 0800 [facility] Last Admin: 12/02/17 09:55 Dose: 1 tab - Labs Labs: 12/03/17 06:30 12/03/17 06:30 PT 22.4 SECONDS (9.4-12.5) H 12/03/17 06:30 INR 1.92 (0.93-1.08) H 12/03/17 06:30 APTT 35.6 Seconds (25.1-36.5) 12/03/17 06:30 - Constitutional Appears: Non-toxic, No Acute Distress - Head Exam Head Exam: ATRAUMATIC, NORMOCEPHALIC - Eye Exam Eye Exam: EOMI, PERRL. absent: Conjunctival injection, Scleral icterus Pupil Exam: NORMAL ACCOMODATION, PERRL. absent: Irregular, Unequal - ENT Exam ENT Exam: Mucous Membranes Moist - Neck Exam Neck Exam: Full ROM - Respiratory Exam Respiratory Exam: Clear to Ausculation Bilateral - Cardiovascular Exam Cardiovascular Exam: RRR, +S1, +S2. absent: Murmur - GI/Abdominal Exam GI & Abdominal Exam: Soft, Normal Bowel Sounds. absent: Tenderness, Organomegaly - Rectal Exam Rectal Exam: NORMAL INSPECTION - Extremities Exam Extremities Exam: Normal Inspection. absent: Calf Tenderness, Pedal Edema - Back Exam Back Exam: NORMAL INSPECTION - Neurological Exam Neurological Exam: Alert, Awake, Oriented x3 - Psychiatric Exam Psychiatric exam: Normal Affect, Normal Mood - Skin Skin Exam: Dry, Normal Color, Warm Assessment and Plan - Assessment and Plan (Free Text) Assessment: 52 y/o male w/ ESRD initiating HD: -vein mapping bilaterally -will plan for AVF tomorrow at 7:30 AM. -no sticks, IVs, blood draws, BP measurement to bilateral arms above elbow -ok for IVs in hands of either arm -further recs per nephro -may need hematology regarding anticoagulation perioperatively -will discuss with Dr. Malin
[2017-12-03] MEDS: Doxercalciferol 4 mcg/2 ml Inj IVP SCH (08:14)
[2017-12-03] MEDS: Iron Sucrose 100 mg/5 ml Inj IVP SCH (08:14)
[2017-12-03] MEDS ORDERED: Doxercalciferol 4 mcg/2 ml Inj IV SCH (10:00)
[2017-12-03] MEDS: Multivitamin Vitamin B Complex (Nephro-Vite) Tab PO SCH (10:30)
--- NOTE | 2017-12-03 17:54 | CP.PCM.PN ---
Subjective - Date & Time of Evaluation Date of Evaluation: 12/03/17 Time of Evaluation: 17:51 - Subjective Subjective: Assessment: Stable Hypertensive Chronic Kidney Disease (I12.0) with CKD stage 5 (N18.5) likely End stage renal disease (N18.6) Anemia (D64.9), Hyperphosphatemia (E83.39) Morbid obesity rt renal atrophy and obstructive hydronephrosis (chronic) with ureteral stricture bilateral extensive PE (2014)with heterozygous mutation for Prothrombin gene on lifelong coumadin permacath placedm hd second session today pt planned for AVF thursday PRBC as needed for anemia. not on MEENA as BP elevated, iron IV with HD continue phos binder and hectoral BP control with meds as ordered. anticoagulation as per primary team/heme complaining of leg cramp: tylenol ordered Physical Examination: General Appearance: Comfortable, in no acute respiratory distress, co-operative . morbid obesity Vitals reviewed and noted as below Head; Atraumatic, normocephalic ENT: no ulcers no thrush. Tongue is midline. Oropharynx: no rash or ulcers. EYES: Pupils are equal, round and reactive to light accommodation. Eye muscles and extraocular movement intact. Sclera is anicteric. Neck; supple no lymphadenopathy, no thyromegaly or bruit Lungs: Normal respiratory rate/effort. Breath sounds bilateral equal and clear Heart: Normal rate. s1s2 normal. No rub or gallop. Extremities: 1-2+ edema. No varicose veins Neurological: Patient is alert, awake and oriented to person, place and time. No focal deficit. Strength bilateral appropriate and equal Skin: Warm and dry. Normal turgor. No rash. Palpitation: Normal elasticity for age Abdomen: Abdomen is soft. Bowel sounds +. There is no abdominal tenderness, no guarding/rigidity or organomegaly Psych: normal insight and normal affect/mood MSK: no joint tenderness or swelling. Digits and nails normal, no deformity : kidney or bladder not palpable permacat Objective - Vital Signs/Intake and Output Vital Signs (last 24 hours): Temp Pulse Resp BP Pulse Ox 98.0 F 71 20 98/58 L 97 12/03/17 07:30 12/03/17 07:30 12/03/17 07:30 12/03/17 17:17 12/03/17 07:30 Intake and Output: 12/03/17 12/03/17 06:59 18:59 Intake Total 660 Output Total 800 Balance -140 - Medications Medications: Current Medications Acetaminophen (Tylenol 325mg Tab) 650 mg PO Q6H PRN PRN Reason: Pain, Mild (1-3) Last Admin: 12/03/17 17:14 Dose: 650 mg Arformoterol Tartrate (Brovana) 15 mcg IH DAILY PRN PRN Reason: Shortness of Breath Budesonide (Pulmicort Respules) 1 mg IH DAILY PRN PRN Reason: Shortness of Breath Doxercalciferol (Hectorol) 2 mcg IVP [facility] Last Admin: 12/03/17 08:14 Dose: 2 mcg Furosemide (Lasix) 40 mg PO DAILY [facility] Last Admin: 12/03/17 10:30 Dose: 40 mg Heparin Sodium (Porcine) (Heparin) 2,200 units ICA [facility] Last Admin: 12/03/17 08:13 Dose: 2,200 units Heparin Sodium (Porcine) (Heparin) 2,400 units ICV [facility] Last Admin: 12/03/17 08:14 Dose: 2,400 units Hydralazine HCl (Apresoline) 50 mg PO BID [facility] Last Admin: 12/03/17 17:17 Dose: Not Given Hydralazine HCl (Apresoline) 25 mg PO Q4 PRN PRN Reason: Other Last Admin: 12/01/17 16:07 Dose: 25 mg Iron Sucrose (Venofer) 100 mg IVP [facility] Last Admin: 12/03/17 08:14 Dose: 100 mg Ondansetron HCl (Zofran Inj) 4 mg IVP Q6H PRN PRN Reason: Nausea/Vomiting Sevelamer HCl (Renagel) 800 mg PO TID [facility] Last Admin: 12/03/17 10:30 Dose: 800 mg Vitamin B Complex/Vit C/Folic Acid (Nephro-Yamel) 1 tab PO 0800 [facility] Last Admin: 12/03/17 10:30 Dose: 1 tab - Labs Labs: 12/03/17 06:30 12/03/17 06:30 PT 22.4 SECONDS (9.4-12.5) H 12/03/17 06:30 INR 1.92 (0.93-1.08) H 12/03/17 06:30 APTT 35.6 Seconds (25.1-36.5) 12/03/17 06:30
--- NOTE | 2017-12-03 17:58 | PN ---
DATE: SUBJECTIVE: Complained of feeling dizzy. He was given losartan this morning. His blood pressure dropped and states he does not feel well and has hemodialysis treatment done today also. PHYSICAL EXAMINATION: GENERAL: He is awake, alert, oriented, communicative, feeling dizzy. VITAL SIGNS: He is afebrile, pulse 71, respirations 20, blood pressure 150/52. LUNGS: Bilateral good air flow. No rhonchi or crackle. HEART: S1, S2 audible. ABDOMEN: Soft, obese, nontender. No rebound. No guarding. NEUROLOGIC: He is awake, alert, oriented, communicative. LABORATORY EXAM: WBC is 9.3, hemoglobin 12, hematocrit 36, and platelets 189. PT is 22.4, INR 1.92. Chemistry: Sodium 140, potassium 3.6, chloride 105, CO2 of 22. BUN 99, creatinine 0.5. Blood sugar 98. ASSESSMENT: 1. End-stage renal disease, on hemodialysis. 2. Uncontrolled hypertension. 3. Hyperlipidemia. 4. Morbid obesity. 5. History of pulmonary embolism. PLAN: Patient is off Coumadin for now. His anticoagulants are on hold, so possible fistula placement tomorrow. We will continue him on hydralazine, hold his losartan since it given some feeling of dizzy. Continue him on Pulmicort, RenaGel, and will follow up the patient in . Gennaro Izquierdo MD
--- NOTE | 2017-12-03 23:48 | CP.PCM.PN ---
Subjective - Date & Time of Evaluation Date of Evaluation: 12/03/17 Time of Evaluation: 23:47 - Subjective Subjective: # 20 angiocath was inserted in right hand dorsum. Objective - Vital Signs/Intake and Output Vital Signs (last 24 hours): Temp Pulse Resp BP Pulse Ox 97.6 F 70 18 98/58 L 99 12/03/17 14:00 12/03/17 14:00 12/03/17 14:00 12/03/17 17:17 12/03/17 14:00 Intake and Output: 12/03/17 12/04/17 18:59 06:59 Intake Total 480 Balance 480 - Medications Medications: Current Medications Acetaminophen (Tylenol 325mg Tab) 650 mg PO Q6H PRN PRN Reason: Pain, Mild (1-3) Last Admin: 12/03/17 17:14 Dose: 650 mg Arformoterol Tartrate (Brovana) 15 mcg IH DAILY PRN PRN Reason: Shortness of Breath Budesonide (Pulmicort Respules) 1 mg IH DAILY PRN PRN Reason: Shortness of Breath Doxercalciferol (Hectorol) 2 mcg IVP [facility] Last Admin: 12/03/17 08:14 Dose: 2 mcg Furosemide (Lasix) 40 mg PO DAILY [facility] Last Admin: 12/03/17 10:30 Dose: 40 mg Heparin Sodium (Porcine) (Heparin) 2,200 units ICA [facility] Last Admin: 12/03/17 08:13 Dose: 2,200 units Heparin Sodium (Porcine) (Heparin) 2,400 units ICV [facility] Last Admin: 12/03/17 08:14 Dose: 2,400 units Hydralazine HCl (Apresoline) 50 mg PO BID [facility] Last Admin: 12/03/17 17:17 Dose: Not Given Hydralazine HCl (Apresoline) 25 mg PO Q4 PRN PRN Reason: Other Last Admin: 12/01/17 16:07 Dose: 25 mg Iron Sucrose (Venofer) 100 mg IVP [facility] Last Admin: 12/03/17 08:14 Dose: 100 mg Ondansetron HCl (Zofran Inj) 4 mg IVP Q6H PRN PRN Reason: Nausea/Vomiting Sevelamer HCl (Renagel) 800 mg PO TID [facility] Last Admin: 12/03/17 10:30 Dose: 800 mg Vitamin B Complex/Vit C/Folic Acid (Nephro-Yamel) 1 tab PO 0800 [facility] Last Admin: 12/03/17 10:30 Dose: 1 tab - Labs Labs: 12/03/17 06:30 12/03/17 06:30 PT 22.4 SECONDS (9.4-12.5) H 12/03/17 06:30 INR 1.92 (0.93-1.08) H 12/03/17 06:30 APTT 35.6 Seconds (25.1-36.5) 12/03/17 06:30
[2017-12-04] MEDS ORDERED: Liquid Adhesive TOP ONE (07:23)
[2017-12-04] MEDS ORDERED: Lidocaine 1% Inj (20ml) ONE (07:23)
[2017-12-04] MEDS ORDERED: Bupivacaine 0.5% Inj(30mL) ONE (07:23)
[2017-12-04] MEDS ORDERED: Thrombin Topical 20,000 Intl Units Spray Kit TOP ONE (07:24)
[2017-12-04] MEDS ORDERED: Protamine 50mg/5mL Inj IV ONE (07:31)
[2017-12-04] MEDS: Multivitamin Vitamin B Complex (Nephro-Vite) Tab PO SCH (08:00)
[2017-12-04 08:12] LABS: BASO # 0.01 K/mm3 (0.0-2.0); BASO % 0.1 % (0.0-3.0); EOS # 0.3 (0.0-0.7); EOS % 2.6 % (1.5-5.0); GRAN # 6.52 (1.4-6.5); GRAN % 68.3 % (50.0-68.0); HEMOGLOBIN 11.9 g/dL (14.0-18.0); LYMPH # 2.1 (1.2-3.4); LYMPH % 21.5 % (22.0-35.0); MEAN CELL VOLUME 88.5 fl (80.0-105.0); MEAN CORPUSCULAR HEMOGLOBIN 30.3 pg (25.0-35.0); MEAN CORPUSCULAR HGB CONC 34.2 g/dl (31.0-37.0); MEAN PLATELET VOLUME 11.1 fl (7.0-11.0); MONO # 0.7 (0.1-0.6); MONO % 7.5 % (1.0-6.0); RBC 3.93 10^6/uL (3.5-6.1); RED CELL DISTRIBUTION WIDTH 13.6 % (11.5-14.5); WHITE BLOOD COUNT 9.6 10^3/ul (4.5-11.0)
[2017-12-04 08:21] LABS: INR 1.52 (0.93-1.08); PARTIAL THROMBOPLASTIN TIME 30.5 Seconds (25.1-36.5); PROTHROMBIN TIME 17.6 SECONDS (9.4-12.5)
[2017-12-04 08:27] LABS: ALB/GLOB RATIO 1.2 (1.1-1.8); ALBUMIN 3.5 g/dL (3.0-4.8); CALCIUM 9.3 mg/dL (8.4-10.5)
[2017-12-04] MEDS ORDERED: Midazolam 2 MG/2 ML VIAL ONE ×2 (08:35→09:32)
[2017-12-04] MEDS ORDERED: Propofol 10 mg/ml Inj (20 ML) ONE (08:35)
[2017-12-04] MEDS ORDERED: Rocuronium 10 mg/ml (5 ml) ONE ×2 (08:40→10:19)
[2017-12-04] MEDS ORDERED: Phenylephrine 10 mg/ml Inj ONE (08:59)
--- NOTE | 2017-12-04 09:19 | RAD ---
HISTORY: pre-op COMPARISON: 10/25/2014 FINDINGS: LUNGS: No active pulmonary disease. PLEURA: No significant pleural effusion identified, no pneumothorax apparent. CARDIOVASCULAR: No radiographic findings to suggest acute or significant cardiovascular disease. Venous access catheter in satisfactory position. OSSEOUS STRUCTURES: No significant abnormalities. VISUALIZED UPPER ABDOMEN: Normal. OTHER FINDINGS: None. IMPRESSION: No active disease. No significant interval change compared to the prior examination(s).
[2017-12-04] MEDS ORDERED: Neostigmine Methylsulfate 3mg/3ml Syringe IV ONE (10:48)
[2017-12-04] MEDS ORDERED: HYDROmorphone 0.5 mg/0.5 ml ISec IVP PRN ×2 (11:28→11:31)
[2017-12-04] MEDS ORDERED: HYDROmorphone 0.5 mg/0.5 ml ISec ONE (11:32)
[2017-12-04] MEDS ORDERED: Oxycodone/Acetaminophen 5/325 mg Tab PO PRN (11:32)
--- NOTE | 2017-12-04 11:36 | PCM.SURG1 ---
Surgeon's Initial Post Op Note - Surgeon's Notes Surgeon: Dr. Martinez Prefitter: Suhail Short PGY2 Type of Anesthesia: General Endo Pre-Operative Diagnosis: End stage renal disease needing Hemodialysis Operative Findings: good L arm veins Post-Operative Diagnosis: SAme Operation Performed: L antecubital brachio-cephalic AVF creation Specimen/Specimens Removed: none Estimated Blood Loss: EBL {In ML}: 30 Blood Products Given: N/A Drains Used: No Drains Post-Op Condition: Good Date of Surgery/Procedure: 12/04/17 Time of Surgery/Procedure: 11:36
--- NOTE | 2017-12-04 16:23 | PN ---
DATE: SUBJECTIVE: The patient is a 52-year-old, seen and examined. He had AV shunt placed today in his left brachial artery and vein. Complained of having burning sensation in the left arm, otherwise doing well. OBJECTIVE: VITAL SIGNS: He is afebrile, pulse 62, respirations 18, blood pressure 143/56. LUNGS: Bilateral clear air flow. No rhonchi or crackles. HEART: S1 and S2 audible. No murmur. ABDOMEN: Soft, nontender, no rebound, no guarding. There is no hepatosplenomegaly. NEUROLOGICAL: He is awake, alert, oriented, communicative. LABORATORY DATA: WBC is 9.6, hemoglobin 11.9, hematocrit 34.8, and platelets 168. PT is 17.6, INR is 1.52. Chemistry: Sodium 139, potassium 3.5, chloride 104, CO2 of 22. BUN 79, creatinine 8.2. Blood sugar of 101. X-ray chest is negative. ASSESSMENT: 1. End-stage renal disease, on hemodialysis. 2. Status post arteriovenous shunt placement. 3. Hypertension. 4. Morbid obesity. 5. Pulmonary embolism. PLAN: We will give analgesic as needed. The patient will receive hemodialysis probably in the a.m. We will revaluate the patient. Gennaro Izquierdo MD
--- NOTE | 2017-12-04 16:36 | CP.PCM.PN ---
Subjective - Date & Time of Evaluation Date of Evaluation: 12/04/17 Time of Evaluation: 16:32 - Subjective Subjective: Nephrology Consultation: Assessment: Stable Hypertensive Chronic Kidney Disease (I12.0) with CKD stage 5 (N18.5) likely End stage renal disease (N18.6) Anemia (D64.9), Hyperphosphatemia (E83.39) Morbid obesity rt renal atrophy and obstructive hydronephrosis (chronic) with ureteral stricture bilateral extensive PE (2014)with heterozygous mutation for Prothrombin gene on lifelong coumadin Plan: HD tomorrow a per TTS. added Nephrovite 1 tab/day. PRBC as needed for anemia. not on MEENA as BP elevated, last Hb 11.9. will give iron IV with HD started phos binders , last phos level 7.6 started hectorol as high PTH BP control with meds as ordered. Patient now on losartan and lasix anticoagulation as per primary team/heme Glycemic control, Dialysis consistent diet Further work up/management as per primary team Dose meds/antibiotics (if needed) for ESRD status. Avoid fleets enema/magnesium based laxatives. pt advised to loose weight SW for outpt HD placement (has slot as TTS 1st shift). pt stable for d/c tomorrow after HD from renal perspective Thanks for allowing me to participate in care of your patient. Will follow patient with you. Please call if any Qs. d/w team Dr Kelechi Solano Office: [phone] Chief Complaint;abnormal kidney function HPI: Pt is a 52 M with hx of CKD stage 4 with rt renal atrophy and obstructive hydronephrosis (chronic) with ureteral strictures, b/l PE with heterozygous mutation for Prothrombin gene on lifelong coumadin, chronic anemia, long standing hx of hypertension, morbid obesity, non compliant with follow ups presented with complaints of muscle cramps. found to have advanced kidney failure hence renal was consulted cramps better. he feels in usual health. aware about kidney disease for years ROS: Cardiovascular: No chest pain. Pulmonary: No shortness of breath Gastrointestinal: denies abdominal pain No nausea. No vomiting. Genitourinary: No pain while urinating. Denies blood in urine. All other negative. had cramps after last HD. s/p AVF 12/04/[address] Butts Physical Examination: General Appearance: Comfortable, in no acute respiratory distress, co-operative . morbid obesity Vitals reviewed and noted as below Head; Atraumatic, normocephalic ENT: no ulcers no thrush. Tongue is midline. Oropharynx: no rash or ulcers. EYES: Pupils are equal, round and reactive to light accommodation. Eye muscles and extraocular movement intact. Sclera is anicteric. Neck; supple no lymphadenopathy, no thyromegaly or bruit Lungs: Normal respiratory rate/effort. Breath sounds bilateral equal and clear Heart: Normal rate. s1s2 normal. No rub or gallop. Extremities: 1-2+ edema. No varicose veins Neurological: Patient is alert, awake and oriented to person, place and time. No focal deficit. Strength bilateral appropriate and equal Skin: Warm and dry. Normal turgor. No rash. Palpitation: Normal elasticity for age Abdomen: Abdomen is soft. Bowel sounds +. There is no abdominal tenderness, no guarding/rigidity or organomegaly Psych: normal insight and normal affect/mood MSK: no joint tenderness or swelling. Digits and nails normal, no deformity : kidney or bladder not palpable Access: Rt chest permacath and left AVF 12/04/17 Labs/imaging reviewed. Past medical history, past surgical history, family history, social history, allergy reviewed and noted as below Family Hx: no hx of CKD. uncle was on dialysis. pt not aware about cause of kidney failure Objective - Vital Signs/Intake and Output Vital Signs (last 24 hours): Temp Pulse Resp BP Pulse Ox 98.2 F 82 18 143/56 L 95 12/04/17 12:15 12/04/17 12:15 12/04/17 12:15 12/04/17 12:15 12/04/17 12:15 Intake and Output: 12/04/17 12/04/17 06:59 18:59 Intake Total 600 Output Total 700 Balance -100 - Medications Medications: Current Medications Acetaminophen (Tylenol 325mg Tab) 650 mg PO Q6H PRN PRN Reason: Pain, Mild (1-3) Last Admin: 12/03/17 17:14 Dose: 650 mg Arformoterol Tartrate (Brovana) 15 mcg IH DAILY PRN PRN Reason: Shortness of Breath Budesonide (Pulmicort Respules) 1 mg IH DAILY PRN PRN Reason: Shortness of Breath Doxercalciferol (Hectorol) 2 mcg IVP [facility] Last Admin: 12/03/17 08:14 Dose: 2 mcg Furosemide (Lasix) 40 mg PO DAILY [facility] Last Admin: 12/03/17 10:30 Dose: 40 mg Heparin Sodium (Porcine) (Heparin) 2,200 units ICA [facility] Last Admin: 12/03/17 08:13 Dose: 2,200 units Heparin Sodium (Porcine) (Heparin) 2,400 units ICV [facility] Last Admin: 12/03/17 08:14 Dose: 2,400 units Hydralazine HCl (Apresoline) 25 mg PO Q4 PRN PRN Reason: Other Last Admin: 12/01/17 16:07 Dose: 25 mg Hydromorphone HCl (Dilaudid) 0.5 mg IVP Q4H PRN PRN Reason: Pain, severe (8-10) Iron Sucrose (Venofer) 100 mg IVP [facility] Last Admin: 12/03/17 08:14 Dose: 100 mg Ondansetron HCl (Zofran Inj) 4 mg IVP Q6H PRN PRN Reason: Nausea/Vomiting Oxycodone/Acetaminophen (Percocet 5/325 Mg Tab) 2 tab PO Q4H PRN PRN Reason: Pain, moderate (4-7) Stop: 12/07/17 11:33 Last Admin: 12/04/17 12:40 Dose: 2 tab Sevelamer HCl (Renagel) 800 mg PO TID [facility] Last Admin: 12/04/17 14:14 Dose: Not Given Vitamin B Complex/Vit C/Folic Acid (Nephro-Yamel) 1 tab PO 0800 [facility] Last Admin: 12/04/17 08:00 Dose: Not Given - Labs Labs: 12/04/17 07:58 12/04/17 07:58 PT 17.6 SECONDS (9.4-12.5) H 12/04/17 07:58 INR 1.52 (0.93-1.08) H 12/04/17 07:58 APTT 30.5 Seconds (25.1-36.5) 12/04/17 07:58
[2017-12-05 07:51] VITALS: RESP 20
[2017-12-05 08:01] LABS: BASO # 0.02 K/mm3 (0.0-2.0); BASO % 0.2 % (0.0-3.0); EOS # 0.3 (0.0-0.7); EOS % 2.4 % (1.5-5.0); GRAN # 9.65 (1.4-6.5); HEMOGLOBIN 11.2 g/dL (14.0-18.0); LYMPH # 2.2 (1.2-3.4); LYMPH % 16.7 % (22.0-35.0); MEAN CELL VOLUME 90.9 fl (80.0-105.0); MEAN CORPUSCULAR HEMOGLOBIN 30.1 pg (25.0-35.0); MEAN CORPUSCULAR HGB CONC 33.1 g/dl (31.0-37.0); MEAN PLATELET VOLUME 11.5 fl (7.0-11.0); MONO # 0.9 (0.1-0.6); MONO % 6.7 % (1.0-6.0); RBC 3.72 10^6/uL (3.5-6.1); RED CELL DISTRIBUTION WIDTH 13.8 % (11.5-14.5)
[2017-12-05] MEDS: Multivitamin Vitamin B Complex (Nephro-Vite) Tab PO SCH (08:04)
[2017-12-05 08:09] LABS: ALB/GLOB RATIO 1.2 (1.1-1.8); ALBUMIN 3.4 g/dL (3.0-4.8); CALCIUM 9.2 mg/dL (8.4-10.5)
--- NOTE | 2017-12-05 08:15 | CP.PCM.PN ---
Subjective - Date & Time of Evaluation Date of Evaluation: 12/05/17 Time of Evaluation: 08:10 - Subjective Subjective: Surgery: Dr. Malin Patient doing well today. He reports some stiffness to the left arm but otherwise denies pain. He reports no numbness or pain to the left hand. He denies bleeding. He is tolerating diet. He states he is for HD today through permacat. Objective - Vital Signs/Intake and Output Vital Signs (last 24 hours): Temp Pulse Resp BP Pulse Ox 98.6 F 77 20 121/60 100 12/05/17 07:30 12/05/17 07:30 12/05/17 07:30 12/05/17 07:30 12/05/17 07:30 Intake and Output: 12/05/17 12/05/17 06:59 18:59 Intake Total 1560 Balance 1560 - Medications Medications: Current Medications Acetaminophen (Tylenol 325mg Tab) 650 mg PO Q6H PRN PRN Reason: Pain, Mild (1-3) Last Admin: 12/05/17 05:39 Dose: 650 mg Arformoterol Tartrate (Brovana) 15 mcg IH DAILY PRN PRN Reason: Shortness of Breath Budesonide (Pulmicort Respules) 1 mg IH DAILY PRN PRN Reason: Shortness of Breath Doxercalciferol (Hectorol) 2 mcg IVP [facility] Last Admin: 12/03/17 08:14 Dose: 2 mcg Furosemide (Lasix) 40 mg PO DAILY [facility] Last Admin: 12/03/17 10:30 Dose: 40 mg Heparin Sodium (Porcine) (Heparin) 2,200 units ICA [facility] Last Admin: 12/03/17 08:13 Dose: 2,200 units Heparin Sodium (Porcine) (Heparin) 2,400 units ICV [facility] Last Admin: 12/03/17 08:14 Dose: 2,400 units Heparin Sodium (Porcine) (Heparin) 5,000 units SC Q12 [facility] PRN Reason: Protocol Last Admin: 12/04/17 22:18 Dose: 5,000 units Hydralazine HCl (Apresoline) 25 mg PO Q4 PRN PRN Reason: Other Last Admin: 12/01/17 16:07 Dose: 25 mg Hydromorphone HCl (Dilaudid) 0.5 mg IVP Q4H PRN PRN Reason: Pain, severe (8-10) Iron Sucrose (Venofer) 100 mg IVP [facility] Last Admin: 12/03/17 08:14 Dose: 100 mg Ondansetron HCl (Zofran Inj) 4 mg IVP Q6H PRN PRN Reason: Nausea/Vomiting Oxycodone/Acetaminophen (Percocet 5/325 Mg Tab) 2 tab PO Q4H PRN PRN Reason: Pain, moderate (4-7) Stop: 12/07/17 11:33 Last Admin: 12/04/17 12:40 Dose: 2 tab Sevelamer HCl (Renagel) 800 mg PO TID [facility] Last Admin: 12/04/17 17:09 Dose: 800 mg Vitamin B Complex/Vit C/Folic Acid (Nephro-Yamel) 1 tab PO 0800 [facility] Last Admin: 12/05/17 08:04 Dose: 1 tab Warfarin Sodium (Coumadin) 10 mg PO 1800 [facility] PRN Reason: Protocol - Labs Labs: 12/04/17 07:58 12/05/17 07:00 PT 17.6 SECONDS (9.4-12.5) H 12/04/17 07:58 INR 1.52 (0.93-1.08) H 12/04/17 07:58 APTT 30.5 Seconds (25.1-36.5) 12/04/17 07:58 - Constitutional Appears: Non-toxic, No Acute Distress - Head Exam Head Exam: ATRAUMATIC, NORMOCEPHALIC - Eye Exam Eye Exam: EOMI, Normal appearance - ENT Exam ENT Exam: Mucous Membranes Moist - Respiratory Exam Respiratory Exam: NORMAL BREATHING PATTERN. absent: Respiratory Distress - Cardiovascular Exam Cardiovascular Exam: REGULAR RHYTHM. absent: Tachycardia - Extremities Exam Additional comments: Left upper extremity AVF w/ palpable thrill. No ecchymosis but no palpable hematoma or active oozing from surgical site. Distal pulses intact. Lef thand is warm to touch with full muscle strength Assessment and Plan - Assessment and Plan (Free Text) Assessment: 52 y/o male w/ ESRD s/p Left arm AVF POD1 Plan: -cont HD through permacath -AVF to mature for approximately 10weeks prior to usage attempt -leave dressing while in hospital, can remove once discharge -dermabond covering wound, ok to shower. Do not bathe or soak incision -can take tylenol/motrin for pain -ok to resume Coumadin tonight if no evidence of hematoma formation around AVF -f/u with Dr. Malin in office in 1-2 weeks post d/c. Call for appointment -further recs per Dr. Malin [facility] PGY3
[2017-12-05 08:33] LABS: INR 1.4 (0.93-1.08); PROTHROMBIN TIME 16.2 SECONDS (9.4-12.5)
[2017-12-05] MEDS: Iron Sucrose 100 mg/5 ml Inj IVP SCH (10:09)
[2017-12-05] MEDS: Doxercalciferol 4 mcg/2 ml Inj IVP SCH (10:09)
--- NOTE | 2017-12-05 13:12 | CP.PCM.PN ---
Subjective - Date & Time of Evaluation Date of Evaluation: 12/05/17 Time of Evaluation: 13:10 - Subjective Subjective: Nephrology Consultation: Assessment: Stable Hypertensive Chronic Kidney Disease (I12.0) with CKD stage 5 (N18.5) likely End stage renal disease (N18.6) Anemia (D64.9), Hyperphosphatemia (E83.39) Morbid obesity rt renal atrophy and obstructive hydronephrosis (chronic) with ureteral stricture bilateral extensive PE (2014)with heterozygous mutation for Prothrombin gene on lifelong coumadin Plan: s/p HD, continue ttS. added Nephrovite 1 tab/day. PRBC as needed for anemia. Hgb stable no MEENA continue phos binder on hectorol as high PTH BP control with meds as ordered. anticoagulation as per primary team/heme outpt chair for hd f/u sw S: seen and examined, feels ok slight cramp w/ hd today Physical Examination: General Appearance: Comfortable, in no acute respiratory distress, co-operative . morbid obesity Vitals reviewed and noted as below Head; Atraumatic, normocephalic ENT: no ulcers no thrush. Tongue is midline. Oropharynx: no rash or ulcers. EYES: Pupils are equal, round Sclera is anicteric. Neck; supple no lymphadenopathy, no thyromegaly or bruit Lungs: Normal respiratory rate/effort. Breath sounds bilateral equal and clear Heart: Normal rate. s1s2 normal. No rub or gallop. Extremities: 1+ edema. No varicose veins Neurological: Patient is alert, awake and oriented to person, place and time. No focal deficit. Strength bilateral appropriate and equal Skin: Warm and dry. Normal turgor. No rash. Palpitation: Normal elasticity for age Abdomen: Abdomen is soft. Bowel sounds +. There is no abdominal tenderness, no guarding/rigidity or organomegaly Psych: normal insight and normal affect/mood MSK: no joint tenderness or swelling. Digits and nails normal, no deformity : kidney or bladder not palpable Access: Rt chest permacath and left AVF 12/04/17 Labs/imaging reviewed. Past medical history, past surgical history, family history, social history, allergy reviewed and noted as below Family Hx: no hx of CKD. uncle was on dialysis. pt not aware about cause of kidney failure Objective - Vital Signs/Intake and Output Vital Signs (last 24 hours): Temp Pulse Resp BP Pulse Ox 98.6 F 77 20 121/60 100 12/05/17 07:30 12/05/17 07:30 12/05/17 07:30 12/05/17 07:30 12/05/17 07:30 Intake and Output: 12/05/17 12/05/17 06:59 18:59 Intake Total 1560 Balance 1560 - Medications Medications: Current Medications Acetaminophen (Tylenol 325mg Tab) 650 mg PO Q6H PRN PRN Reason: Pain, Mild (1-3) Last Admin: 12/05/17 05:39 Dose: 650 mg Arformoterol Tartrate (Brovana) 15 mcg IH DAILY PRN PRN Reason: Shortness of Breath Budesonide (Pulmicort Respules) 1 mg IH DAILY PRN PRN Reason: Shortness of Breath Doxercalciferol (Hectorol) 2 mcg IVP [facility] Last Admin: 12/05/17 10:09 Dose: 2 mcg Furosemide (Lasix) 40 mg PO DAILY [facility] Last Admin: 12/05/17 11:08 Dose: Not Given Heparin Sodium (Porcine) (Heparin) 2,200 units ICA [facility] Last Admin: 12/03/17 08:13 Dose: 2,200 units Heparin Sodium (Porcine) (Heparin) 2,400 units ICV [facility] Last Admin: 12/03/17 08:14 Dose: 2,400 units Heparin Sodium (Porcine) (Heparin) 5,000 units SC Q12 [facility] PRN Reason: Protocol Last Admin: 12/04/17 22:18 Dose: 5,000 units Hydralazine HCl (Apresoline) 25 mg PO Q4 PRN PRN Reason: Other Last Admin: 12/01/17 16:07 Dose: 25 mg Hydromorphone HCl (Dilaudid) 0.5 mg IVP Q4H PRN PRN Reason: Pain, severe (8-10) Iron Sucrose (Venofer) 100 mg IVP [facility] Last Admin: 12/05/17 10:09 Dose: 100 mg Ondansetron HCl (Zofran Inj) 4 mg IVP Q6H PRN PRN Reason: Nausea/Vomiting Oxycodone/Acetaminophen (Percocet 5/325 Mg Tab) 2 tab PO Q4H PRN PRN Reason: Pain, moderate (4-7) Stop: 12/07/17 11:33 Last Admin: 12/04/17 12:40 Dose: 2 tab Sevelamer HCl (Renagel) 800 mg PO TID [facility] Last Admin: 12/04/17 17:09 Dose: 800 mg Vitamin B Complex/Vit C/Folic Acid (Nephro-Yamel) 1 tab PO 0800 [facility] Last Admin: 12/05/17 08:04 Dose: 1 tab Warfarin Sodium (Coumadin) 10 mg PO 1800 [facility] PRN Reason: Protocol - Labs Labs: 12/05/17 07:00 12/05/17 07:00 PT 16.2 SECONDS (9.4-12.5) H 12/05/17 07:00 INR 1.40 (0.93-1.08) H 12/05/17 07:00 APTT 30.5 Seconds (25.1-36.5) 12/04/17 07:58
--- NOTE | 2017-12-05 22:44 | PN ---
DATE: SUBJECTIVE: The patient is 52-year-old, seen and examined, on dialysis. He is complaining of weakness. No nausea, vomiting. No diarrhea. Some soreness and burning in the left surgical site. OBJECTIVE: VITAL SIGNS: He is afebrile, pulse 77, respirations 20, blood pressure 121/60. LUNGS: Bilateral good air flow. No rhonchi or crackles. HEART: S1 and S2 audible. ABDOMEN: Soft, obese, nontender. No rebound. No guarding. NEUROLOGICAL: The patient is awake, alert, oriented, able to communicate. EXTREMITIES: Bilateral leg, no edema. Left arm is in the sling. LABORATORY EXAM: WBC is 13, hemoglobin 11.2, hematocrit 33.8, and platelets 165. PT is 16.2, INR is 1.4. ASSESSMENT AND PLAN: 1. Status post left arteriovenous shunt. 2. End-stage renal disease, on hemodialysis. 3. Morbid obesity. 4. History of horseshoe kidney. PLAN: We will give him 10 mg of Coumadin today. He is receiving dialysis today. insulin. I noted irregular rhythm. I do not know if it is PACs or AFib. We will order for EKG to confirm that. The patient is already on anticoagulant and his heart rate seems to be well controlled and follow up this patient in a.m. We will follow up his PT/INR. Once he is therapeutic, we will make discharge . Gennaro Izquierdo MD
[2017-12-06] MEDS: Multivitamin Vitamin B Complex (Nephro-Vite) Tab PO SCH (08:04)
[2017-12-06 08:48] VITALS: BP 137/77; PULSE 95; TEMP 97.9; O2SAT 94
--- NOTE | 2017-12-06 09:00 | CP.PCM.PN ---
Subjective - Date & Time of Evaluation Date of Evaluation: 12/06/17 Time of Evaluation: 07:00 - Subjective Subjective: Surgery: Dr. Malin Pt Seen and examined this AM. No acute events overnight. HD yesterday from [facility]. Tolerated well. Denies numbness/tingling in upper extremities. full ROM and bonus clerk strength on left hand. Tolerating current diet. Denies: fevers, chills, chest pain, shortness of breath, nausea, vomiting, diarrhea Objective - Vital Signs/Intake and Output Vital Signs (last 24 hours): Temp Pulse Resp BP Pulse Ox 97.9 F 95 H 20 137/77 94 L 12/06/17 06:00 12/06/17 06:00 12/06/17 06:00 12/06/17 06:00 12/06/17 06:00 Intake and Output: 12/06/17 12/06/17 06:59 18:59 Intake Total 780 Balance 780 - Medications Medications: Current Medications Acetaminophen (Tylenol 325mg Tab) 650 mg PO Q6H PRN PRN Reason: Pain, Mild (1-3) Last Admin: 12/05/17 18:36 Dose: 650 mg Arformoterol Tartrate (Brovana) 15 mcg IH DAILY PRN PRN Reason: Shortness of Breath Budesonide (Pulmicort Respules) 1 mg IH DAILY PRN PRN Reason: Shortness of Breath Doxercalciferol (Hectorol) [address] [facility] Last Admin: 12/05/17 10:09 Dose: 2 mcg Furosemide (Lasix) 40 mg PO DAILY [facility] Last Admin: 12/05/17 11:08 Dose: Not Given Heparin Sodium (Porcine) (Heparin) 2,[address] [facility] Last Admin: 12/05/17 13:54 Dose: 2,200 units Heparin Sodium (Porcine) (Heparin) 2,[address] [facility] Last Admin: 12/05/17 13:54 Dose: 2,400 units Heparin Sodium (Porcine) (Heparin) 5,000 units SC Q12 [facility] PRN Reason: Protocol Last Admin: 12/05/17 21:38 Dose: 5,000 units Hydralazine HCl (Apresoline) 25 mg PO Q4 PRN PRN Reason: Other Last Admin: 12/01/17 16:07 Dose: 25 mg Hydromorphone HCl (Dilaudid) 0.5 mg IVP Q4H PRN PRN Reason: Pain, severe (8-10) Iron Sucrose (Venofer) 100 mg IVP TUTHSA [facility] Last Admin: 12/05/17 10:09 Dose: 100 mg Ondansetron HCl (Zofran Inj) 4 mg IVP Q6H PRN PRN Reason: Nausea/Vomiting Oxycodone/Acetaminophen (Percocet 5/325 Mg Tab) 2 tab PO Q4H PRN PRN Reason: Pain, moderate (4-7) Stop: 12/07/17 11:33 Last Admin: 12/04/17 12:40 Dose: 2 tab Sevelamer HCl (Renagel) 800 mg PO TID [facility] Last Admin: 12/05/17 17:10 Dose: 800 mg Vitamin B Complex/Vit C/Folic Acid (Nephro-Yamel) 1 tab PO 0800 [facility] Last Admin: 12/06/17 08:04 Dose: 1 tab Warfarin Sodium (Coumadin) 10 mg PO 1800 [facility] PRN Reason: Protocol Last Admin: 12/05/17 17:10 Dose: 10 mg - Labs Labs: 12/05/17 07:00 12/05/17 07:00 PT 16.2 SECONDS (9.4-12.5) H 12/05/17 07:00 INR 1.40 (0.93-1.08) H 12/05/17 07:00 APTT 30.5 Seconds (25.1-36.5) 12/04/17 07:58 - Constitutional Appears: Non-toxic, No Acute Distress - Head Exam Head Exam: ATRAUMATIC - Eye Exam Eye Exam: EOMI - ENT Exam ENT Exam: Mucous Membranes Moist - Respiratory Exam Respiratory Exam: NORMAL BREATHING PATTERN. absent: Accessory Muscle Use, Respiratory Distress - Cardiovascular Exam Cardiovascular Exam: REGULAR RHYTHM, +S1, +S2. absent: Bradycardia, Tachycardia - GI/Abdominal Exam GI & Abdominal Exam: Soft. absent: Distended, Firm, Rigid, Tenderness - Extremities Exam Extremities Exam: absent: Calf Tenderness Additional comments: LUE fistula. Dressing C/D/I Palpable thrill - Neurological Exam Neurological Exam: Alert, Awake, Oriented x3 - Skin Skin Exam: Intact, Warm Assessment and Plan - Assessment and Plan (Free Text) Assessment: 52 y/o male w/ ESRD s/p Left arm AVF POD2 Plan: -HD through [facility] -AVF to mature for approximately 10weeks prior to usage attempt -leave dressing while in hospital, can remove once discharge -dermabond covering wound, ok to shower. Do not bathe or soak incision -can take tylenol/motrin for pain -cleared for discharge from surgical standpoint -f/u with Dr. Malin in office in 1-2 weeks post d/c. Call for appointment -[facility]
--- NOTE | 2017-12-07 17:40 | DS ---
HISTORY OF PRESENT ILLNESS: The patient is 52 years old, who was called to get admitted since his BUN and creatinine were found to be high. His BUN in the office was above 80 and his creatinine was 10.5, so he had Uldall catheter placed. Underwent hemodialysis multiple times. He also has left arm AV shunt made. He was off of Coumadin, then it was restarted. He is doing well, so was discharged on 12/06/2017 in stable condition. PHYSICAL EXAMINATION: GENERAL: Awake, alert, oriented, communicative. VITAL SIGNS: He is afebrile, pulse 95, respirations 20, blood pressure 137/77. LUNGS: Bilateral fair airflow. No rhonchi or crackle. HEART: S1 and S2 audible. ABDOMEN: Soft. Nontender. No rebound. No guarding. NEUROLOGIC: The patient is awake, alert, oriented, ambulatory. ASSESSMENT AND PLAN: 1. End-stage renal disease, on hemodialysis. 2. Morbid obesity. 3. Hypertension. 4. Left arteriovenous shunt placement. 5. Horseshoe kidney with chronic right hydronephrosis. So the patient was restarted on Coumadin and being discharged home on Coumadin and he will resume Bystolic, Advair, Renagel and Lasix. I will follow up in the office. Gennaro Izquierdo MD
--- NOTE | 2017-12-08 05:59 | DS ---
HISTORY OF PRESENT ILLNESS: This is a 52-year-old male who is accompanied to the hospital who was found to have advanced kidney disease. The patient was placed on dialysis. He had a catheter in place. The patient had a fistula that was placed in the left arm. He feels well. He is back on his Coumadin. The patient is not complaining of any headaches or dizziness. No nausea. No vomiting. He is going to be discharged to home to follow up as an outpatient. He is cleared by Surgery and by Nephrology to be discharged home. PHYSICAL EXAMINATION VITAL SIGNS: Temperature is 97.1, pulse 95, blood pressure 137/77. GENERAL: The patient is lying in bed, flat, comfortable. HEENT: No oral lesion. Anicteric sclerae. Moist mucosa. NECK: No JVD, adenopathy, or thyromegaly. CARDIOVASCULAR: S1 and S2, regular. No murmurs, rubs, or gallops. LUNGS: Clear to auscultation bilaterally. No wheeze, rales, or rhonchi. ABDOMEN: Bowel sounds are positive. Soft, nontender and nondistended. EXTREMITIES: No cyanosis, clubbing or edema. ASSESSMENT 1. End-stage renal disease, on hemodialysis. 2. Hypertension. 3. Pulmonary embolism, on anticoagulation. 4. Left arteriovenous fistula placement. PLAN: The patient is currently comfortable. I will discharge him home. He is going to be placed on Percocet. I have given him 15 tablets. He is going to follow up with Surgery. He is also going to have dialysis on Thursday, , and Thursday. This was set up already by Sorority Supervisor. He is going to have dialysis on Thursday at 06:00 a.m. He does understand to report to the hospital by 05:30 in the dialysis unit. The patient has no nausea, no vomiting. No fever, headache, or chills. He is going to be on Renagel. I gave him a prescription for this as well. He is going to be on Lasix on his non-dialysis days. José Luis Rodgers MD
--- NOTE | 2017-12-25 08:19 | OP ---
PROCEDURE DATE: 12/04/2017 PREOPERATIVE DIAGNOSIS: End-stage renal disease. POSTOPERATIVE DIAGNOSIS: End-stage renal disease. PROCEDURE: Creation of arteriovenous fistula in his arm, left brachiocephalic. SURGEON: Hoda Malin MD COMPLICATIONS: No complication. ANESTHESIOLOGIST: Usman Goldman DO. HAIRSPRING I INSPECTOR: INDICATIONS: Mr. Parker, he is a 52-year-old male patient with multiple medical problems, developed end-stage renal disease and needs dialysis. Catheter was inserted for him for dialysis and he came today for creation of long-term access. Risks and benefits explained to him and he agreed to proceed with the surgery. Patient came to the operating room. He was lying in the supine position. He was prepped and draped in the usual sterile fashion. General anesthesia was given for him. Local anesthesia 1% used to infiltrate the lower part of the left arm. After ultrasound was done, identified the brachial artery and the cephalic vein and checking the size of the vein. Incision was carried along with the lower of the arm, incision was carried down to subcutaneous tissue. We dissected, identified the cephalic vein, which was identified in vessel loop, was used to pull the vein. We dissected the vein distally and proximally and we ligated the branch, dissected distant of the vein where we can or suitable to mobilize the vein to reach the brachial artery. Brachial artery was felt cut the subcutaneous tissue and we cut looked likely over the bicipital fascia, identified the brachial artery and dissected about 2 inches. The vessel loop allowed us to control the artery and the vein. 5000 units of heparin was given and we cut the distal end of the vein, ligated the distal end and proximal end. We cut it in curved way to increase the size of the anastomosis. We flushed it with heparin saline and using plate, we opened the artery and the incision extended using Pott scissors. Using 6-0 Prolene, end-to-side anastomosis was done in a continuous fashion and before the last couple of stitches, the vein was flushed and the ostia of both sites were flushed and we finished the anastomosis. Now the flow to go to the vein. There was an excellent thrill and hemostasis to be given to the area. I irrigated the wound several times with saline solution and closed the layer using 3-0 Vicryl and 4-0 Monocryl. No complication during the procedure. Hoda Malin MD
== END 2017-12-06 13:49 | disposition home or self-care (01) | DRG 673 ==
LOC: ED 19:59 → ERH 12-01 00:37 → 5RNO 12-01 02:38
PROVIDERS: ADMIT Internal Medicine; ATTEND Internal Medicine
PROC: 0JH63XZ Insertion of Tunneled Vascular Access Device into Chest Subcutaneous Tissue and Fascia, Percutaneous Approach (ICD-10-PCS; 2017-12-02)
PROC: 02H633Z Insertion of Infusion Device into Right Atrium, Percutaneous Approach (ICD-10-PCS; 2017-12-02)
PROC: 5A1D70Z Performance of Urinary Filtration, Intermittent, Less than 6 Hours Per Day (ICD-10-PCS; 2017-12-02)
PROC: 03180ZD Bypass Left Brachial Artery to Upper Arm Vein, Open Approach (ICD-10-PCS; principal; 2017-12-04 07:30)
PROC: 5A1D70Z Performance of Urinary Filtration, Intermittent, Less than 6 Hours Per Day (ICD-10-PCS; 2017-12-05)
DX: I12.0 Hypertensive chronic kidney disease with stage 5 chronic kidney disease or end stage renal disease (principal); N18.6 End stage renal disease; N17.9 Acute kidney failure, unspecified; Z68.43 Body mass index [BMI] 50.0-59.9, adult; N13.1 Hydronephrosis with ureteral stricture, not elsewhere classified; E66.01 Morbid (severe) obesity due to excess calories; D64.9 Anemia, unspecified; J44.9 Chronic obstructive pulmonary disease, unspecified; Q63.1 Lobulated, fused and horseshoe kidney; E83.39 Other disorders of phosphorus metabolism; E78.5 Hyperlipidemia, unspecified; Z90.5 Acquired absence of kidney; Z91.14 Patient's other noncompliance with medication regimen; Z91.19 Patient's noncompliance with other medical treatment and regimen; Z79.01 Long term (current) use of anticoagulants; Z79.51 Long term (current) use of inhaled steroids; Z86.711 Personal history of pulmonary embolism

== ENCOUNTER 2018-07-20 13:18 | Emergency (ER) | payer BC ==
[2018-07-20 13:21] VITALS: BMI 42.3
[2018-07-20] MEDS ORDERED: Iohexol 350 MG/100 ML VIAL ONE (13:42)
[2018-07-20 13:44] VITALS: PULSE 94; TEMP 98
--- NOTE | 2018-07-20 13:46 | ED PDOC ---
Arrival/HPI - General Time Seen by Provider: 07/20/18 13:21 Historian: Patient - History of Present Illness Narrative History of Present Illness (Text): 07/20/18 13:31 52 year old male, with past medical history of hypertension and renal failure on dialysis, presents to the Emergency department complaining of constant right sided chest pain since 1 week. Patient denies any associated shortness of breath, nausea, vomiting, dizziness or diaphoresis. Patient informs having his dialysis this morning without any complications. Patient informs visiting his PMD and was told he had a musculoskeletal problem. Patient expresses concern for PE as per history of pulmonary embolism. Patient denies smoking cigarettes or drinking alcohol. Patient denies any other complaints. PMD: Dr. Izquierdo Time/Duration: 1 week Symptom Onset: Gradual Symptom Course: Unchanged Quality: Aching Activities at Onset: Light Context: Home Associated Symptoms (Text): 07/20/18 14:32 Study right sided chest pain for one week. No dyspnea. No diaphoresis. No dizziness or lightheadedness. No nausea or vomiting. He had dialysis this morning. He was seen by his PMD this morning and told that he had a musculoskeletal problem. He is concerned that he has a pulmonary embolus, as he has a history of pulmonary emboli he is taking Coumadin. Past Medical History - Provider Review Nursing Documentation Reviewed: Yes - Tetanus Immunization Tetanus Immunization: Unknown - Cardiac Hx Pacemaker: No - Pulmonary Hx Asthma: Yes (seasonal) - Neurological Hx Neurological Disorder: No - HEENT Hx HEENT Disorder: No - Renal Other/Comment: pt being worked up for kidney function. pt was born with one functioning kidney had several surgeries to open the closed kidney, pt can't remember which kidney was not working, surgeries were done asa child - Endocrine/Metabolic Hx Endocrine Disorders: No - Hematological/Oncological Hx Blood Transfusions: No - Integumentary Hx Dermatological Disorder: No - Musculoskeletal/Rheumatological Hx Musculoskeletal Disorders: No Hx Falls: No - Gastrointestinal Hx Gastrointestinal Disorders: No - Genitourinary/Gynecological Hx Genitourinary Disorders: No - Psychiatric Hx Emotional Abuse: No Hx Physical Abuse: No Hx Substance Use: No - Surgical History Hx Appendectomy: Yes - Anesthesia Hx Anesthesia Reactions: No Hx Malignant Hyperthermia: No - Suicidal Assessment Feels Threatened In Home Enviroment: No Family/Social History - Physician Review Nursing Documentation Reviewed: Yes Family/Social History: Unknown Family HX Smoking Status: Never Smoked Hx Alcohol Use: Yes (OCCASIONAL) Hx Substance Use: No Allergies/Home Meds Allergies/Adverse Reactions: Allergies No Known Allergies Allergy (Verified 07/20/18 13:44) Home Medications: Home Meds Medication Instructions Recorded Confirmed Warfarin [Coumadin] 9 mg PO TUE 04/10/15 07/20/18 Warfarin [Coumadin] 6 mg PO MWF 11/30/17 07/20/18 Sevelamer [Renagel] 1,600 mg PO TID 07/20/18 07/20/18 Vit B Comp No.3/Folic/C/Biotin 1 tab PO DAILY 07/20/18 07/20/18 [Susana-Yamel Rx] Review of Systems - Physician Review All systems were reviewed & negative as marked: Yes - Review of Systems Constitutional: absent: Fevers Respiratory: absent: SOB, Cough Cardiovascular: Chest Pain. absent: Palpitations, GAGE, Syncope Gastrointestinal: absent: Abdominal Pain, Diarrhea, Nausea, Vomiting Genitourinary Male: absent: Dysuria Musculoskeletal: absent: Back Pain, Neck Pain Neurological: absent: Headache, Dizziness Endocrine: absent: Diaphoresis Physical Exam Vital Signs Reviewed: Yes Temperature: Afebrile Blood Pressure: Normal Pulse: Regular Respiratory Rate: Normal Appearance: Positive for: Non-Toxic, Comfortable, Other (Obese) Pain Distress: None Mental Status: Positive for: Alert and Oriented X 3 - Systems Exam Head: Present: Atraumatic, Normocephalic Pupils: Present: PERRL Extroacular Muscles: Present: EOMI Conjunctiva: Present: Normal Mouth: Present: Moist Mucous Membranes Pharnyx: No: ERYTHEMA, EXUDATE, TONSILS ENLARGED Neck: Present: Normal Range of Motion Respiratory/Chest: Present: Clear to Auscultation, Good Air Exchange. No: Respiratory Distress, Accessory Muscle Use, Tender to Palpation Cardiovascular: Present: Regular Rate and Rhythm, Normal S1, S2. No: Murmurs Abdomen: No: Tenderness, Distention, Peritoneal Signs Back: Present: Normal Inspection Upper Extremity: Present: Normal Inspection. No: Cyanosis, Edema Lower Extremity: Present: Normal Inspection. No: Edema Neurological: Present: GCS=15, CN II-XII Intact, Speech Normal, Motor Func Grossly Intact Skin: Present: Warm, Dry, Normal Color. No: Rashes Psychiatric: Present: Alert, Oriented x 3, Normal Insight, Normal Concentration Medical Decision Making ED Course and Treatment: 07/20/18 13:37 Impression: 52 year old male presents to the Emergency department complaining of chest pain. Plan: -- CTA -- EKG -- Labs -- Chest X-ray -- Reassess and disposition Prior Visits: Notes and results from previous visits were reviewed. Progress Notes: 07/20/18 14:33 Discussed with the patient's solvent mixer , who will make arrangements for dialysis tomorrow in order that the patient can have a CTA today. 07/20/18 14:34 EKG shows sinus arrhythmia with PACs rate approximately [address] or T-wave changes. - RAD Interpretation Radiology Orders: 07/20/18 13:31 CHEST PORTABLE [RAD] Stat 07/20/18 13:37 ANGIO CHEST PE PROTOCOL [CT] Stat CTA chest is read by the radiologist shows no acute findings. Rerecording Mixer: Radiologist - Scribe Statement The provider has reviewed the documentation as recorded by the Scribe Brown Champagne. All medical record entries made by the Scribe were at my direction and personally dictated by me. I have reviewed the chart and agree that the record accurately reflects my personal performance of the history, physical exam, medical decision making, and the department course for this patient. I have also personally directed, reviewed, and agree with the discharge instructions and disposition. Disposition/Present on Arrival - Present on Arrival Any Indicators Present on Arrival: No History of DVT/PE: No History of Uncontrolled Diabetes: No Urinary Catheter: No History of Decub. Ulcer: No History Surgical Site Infection Following: None - Disposition Have Diagnosis and Disposition been Completed?: Yes Diagnosis: Chest pain Disposition: HOME/ ROUTINE Disposition Time: 14:53 Patient Plan: Discharge Condition: GOOD Discharge Instructions (ExitCare): Chest Pain (ED) Referrals: Gennaro Izquierdo MD [Primary Care Provider] - Follow up with primary
[2018-07-20 14:00] LABS: BASO # 0.04 K/mm3 (0.0-2.0); BASO % 0.5 % (0.0-3.0); EOS # 0.2 (0.0-0.7); EOS % 2.7 % (1.5-5.0); GRAN # 5.21 (1.4-6.5); GRAN % 66.4 % (50.0-68.0); HEMOGLOBIN 13.4 g/dL (14.0-18.0); LYMPH % 25.6 % (22.0-35.0); MEAN CELL VOLUME 93.5 fl (80.0-105.0); MEAN CORPUSCULAR HEMOGLOBIN 31.3 pg (25.0-35.0); MEAN CORPUSCULAR HGB CONC 33.5 g/dl (31.0-37.0); MEAN PLATELET VOLUME 10.2 fl (7.0-11.0); MONO # 0.4 (0.1-0.6); MONO % 4.8 % (1.0-6.0); RBC 4.28 10^6/uL (3.5-6.1); RED CELL DISTRIBUTION WIDTH 13.2 % (11.5-14.5); WHITE BLOOD COUNT 7.9 10^3/uL (4.5-11.0)
[2018-07-20 14:10] LABS: ALB/GLOB RATIO 1.4 (1.1-1.8); ALBUMIN 4.6 g/dL (3.0-4.8); CALCIUM 9.3 mg/dL (8.4-10.5)
[2018-07-20 14:21] LABS: TROPONIN I 0.02 ng/mL
--- NOTE | 2018-07-20 14:33 | CT ---
Date of service: 07/20/2018 PROCEDURE: CT Chest with contrast (Pulmonary Angiogram) HISTORY: cp COMPARISON: None available. TECHNIQUE: Axial computed tomography images were obtained of the chest in the pulmonary arterial phase of enhancement. Coronal and sagittal reformatted images were created and reviewed. Intravenous contrast dose: 100 cc of Omni 350 Radiation dose: Total exam DLP = 506.93 mGy-cm. This CT exam was performed using one or more of the following dose reduction techniques: Automated exposure control, adjustment of the mA and/or kV according to patient size, and/or use of iterative reconstruction technique. FINDINGS: PULMONARY ARTERIES: Unremarkable. No pulmonary embolism. AORTA: No acute findings. No thoracic aortic aneurysm. No aortic atherosclerotic calcification or mural plaque present. LUNGS: Unremarkable. No nodule, mass or pulmonary consolidation. PLEURAL SPACES: Unremarkable. No effusion or pneumothorax. HEART: Unremarkable. No cardiomegaly. No significant pericardial effusion. LYMPH NODES: No lymphadenopathy. BONES, CHEST WALL: Unremarkable. No fracture or destructive lesion OTHER FINDINGS: Unremarkable. IMPRESSION: Unremarkable CT pulmonary angiogram. No pulmonary embolus.
--- NOTE | 2018-07-20 14:38 | RAD ---
Date of service: 07/20/2018 HISTORY: cp COMPARISON: Portable chest 12/04/2017. FINDINGS: LUNGS: Right central venous dialysis catheter is been removed in the interval. No active pulmonary disease. Azygous fissure reiterated medial right apex. PLEURA: No significant pleural effusion identified, no pneumothorax apparent. CARDIOVASCULAR: No aortic atherosclerotic calcification present. Normal cardiac size. No pulmonary vascular congestion. OSSEOUS STRUCTURES: No significant abnormalities. VISUALIZED UPPER ABDOMEN: Normal. OTHER FINDINGS: None. IMPRESSION: No interval acute cardiopulmonary disease appreciated. Prior right center venous dialysis catheter now removed.
[2018-07-20 14:48] LABS: INR 1.56; PARTIAL THROMBOPLASTIN TIME 33.1 Seconds (25.1-36.5); PROTHROMBIN TIME 17.9 SECONDS (9.4-12.5)
[2018-07-20 14:49] LABS: D DIMER < 200 ng/mlDDU (0-243)
[2018-07-20 14:57] VITALS: BP 146/84; RESP 16; O2SAT 99
--- NOTE | 2018-07-20 19:34 | CARD ---
APPROVED REPORT Date of service: 07/20/2018 EKG Measurement Heart [id number] <Conclusion> Sinus rhythm with marked sinus arrhythmia with occasional premature ventricular complexes Otherwise normal ECG
== END 2018-07-20 14:58 | disposition home or self-care (01) ==
LOC: ED 13:18
DX: R07.9 Chest pain, unspecified (principal); I12.0 Hypertensive chronic kidney disease with stage 5 chronic kidney disease or end stage renal disease; N18.6 End stage renal disease; Z99.2 Dependence on renal dialysis
CPT/HCPCS: 71045; 71275; 80053; 82550; 83615; 83735; 84484; 85025; 85378; 85610; 85730; 93005; 99284; Q9967